=== PATIENT | female | born 1970 | race American Indian/Alaskan Native ===

== ENCOUNTER 2017-01-01 02:49 | Inpatient (IN) | payer BC, OTHER ==
[2017-01-01 03:26] LABS: Eosinophils % (Auto) 1.1 % (0.0-4.3); Hematocrit 36.9 % (30.3-42.9); Hemoglobin 11.9 gm/dl (10.1-14.3); Mean Corpuscular HGB Conc 32 % (30-34); Mean Corpuscular Hemoglobin 27 pg (28-32); Mean Corpuscular Volume 84 fl (79-97); Platelet Count 386 K/mm3 (140-440); Red Blood Count 4.37 M/mm3 (3.65-5.03); White Blood Count 12.2 K/mm3 (4.5-11.0)
[2017-01-01 03:44] LABS: BUN/Creatinine Ratio 7.5; Calcium 8.9 mg/dL (8.4-10.2); Chloride 100.7 mmol/L (98-107)
[2017-01-01] MEDS ORDERED: DUONEB 0.5 MG-3 MG/3 ML SOLN IH ONE ×2 (04:38→12:08)
[2017-01-01] MEDS ORDERED: LASIX PO ONE (04:38)
[2017-01-01] MEDS ORDERED: BABY ASPIRIN PO ONE (05:23)
--- NOTE | 2017-01-01 05:23 | Emergency Department Report ---
HPI - General Chief Complaint: Dyspnea/Respdistress Time Seen by Provider: 01/01/17 03:21 - HPI HPI: The patient is a 46-year-old female with a history of CHF and presents for evaluation of dyspnea. The patient reports 1 day of constant dyspnea, severe, exacerbated with lying flat or exertion, improved with sitting up and rest. The patient denies fever, trauma to the chest, CRP, hemoptysis, unilateral leg swelling, oral contraceptive use, recent immobilization or surgery, history of DVT or PE, recent cancer. ED Past Medical Hx - Past Medical History Previous Medical History?: Yes Hx Hypertension: Yes Hx Congestive Heart Failure: Yes Additional medical history: MVP - Surgical History Past Surgical History?: Yes Hx Pacemaker: Yes Additional Surgical History: mechanical heart valve - Social History Smoking Status: Never Smoker Substance Use Type: None - Medications Home Medications: Home Medications Medication Instructions Recorded Confirmed Last Taken Type Carvedilol [Coreg] 6.25 mg PO BID 10/27/13 01/01/17 05/14/16 History Losartan [Cozaar] 25 mg PO QDAY 05/14/16 01/01/17 05/14/16 History Spironolactone [Aldactone] 25 mg PO QDAY 05/14/16 01/01/17 Unknown History Warfarin [Coumadin] 10 mg PO 5XW 05/14/16 01/01/17 05/13/16 History Aspirin EC [Aspirin Enteric Coated 81 mg PO QDAY #30 tablet 08/16/16 01/01/17 Unknown Rx TAB] Furosemide [Lasix TAB] 40 mg PO QDAY #30 tablet 08/16/16 01/01/17 Unknown Rx ED Review of Systems ROS: Stated complaint: SOB Other details as noted in HPI Constitutional: denies: fever ENT: denies: throat or neck pain Respiratory: reports cough, shortness of breath Cardiovascular: denies: chest pain Endocrine: denies unexplained weight loss or gain Gastrointestinal: denies: abdominal pain, nausea Genitourinary: denies: dysuria Musculoskeletal: denies: leg swelling Skin: denies: rash Neurological: denies: headache Hematological/Lymphatic: denies: easy bleeding or easy bruising Psych: denies sadness or hopelessness Physical Exam - Physical Exam Vital Signs: Vital Signs 01/01/17 01/01/17 01/01/17 03:52 04:49 04:52 Pulse Rate [ 102 H 102 H Anterior Bilateral Throughout] Respiratory 22 22 Rate [Anterior Bilateral Throughout] Blood Pressure 158/93 O2 Sat by Pulse 99 Oximetry Physical Exam: General: well-nourished, well-developed, no acute distress Head: Normocephalic, atraumatic Eyes: normal sclera ENT: Mucous membranes are pink and moist Neck: trachea midline, neck supple, No neck stiffness, no cervical adenopathy Respiratory: Diminished breath sounds and crackles present at bibasilar lung rasheed, mild costal retractions present Cardio: S1 and S2 present, no murmurs, rubs, gallops, capillary refill is brisk Abdomen: Normoactive bowel sounds, soft abdomen, no rigidity, no guarding or rebound tenderness Musc: 1+ pitting edema of bilateral legs present Skin: No rash Neuro: no facial drooping, normal speech Psych: Normal affect ED Course Vital Signs 01/01/17 01/01/17 01/01/17 03:52 04:49 04:52 Pulse Rate [ 102 H 102 H Anterior Bilateral Throughout] Respiratory 22 22 Rate [Anterior Bilateral Throughout] Blood Pressure 158/93 O2 Sat by Pulse 99 Oximetry ED Medical Decision Making - Lab Data Result diagrams: 01/04/17 06:35 01/04/17 06:35 - Medical Decision Making The patient was seen and examined by myself. The patient is placed on a quality assurance monitor final and continuous pulse ox. On initial evaluation, the patient was found to be in no distress. Evaluation orders were placed. The patient is given IV hydralazine for her elevated blood pressure. X-ray of the chest exhibits pulmonary vessel congestion and bilateral pleural effusions. Lab results revealed elevated BNP of greater than 8000. The patient given IV Lasix for treatment of acute on chronic CHF. The on-call hospitalist service was contacted. They agreed to admit the patient for further treatment and close monitoring. The ED admit order was placed. The patient was admitted in guarded condition. Critical care attestation.: If time is entered above; I have spent that time in minutes in the direct care of this critically ill patient, excluding procedure time. ED Disposition Clinical Impression: Systolic CHF, acute on chronic, Difficulty breathing Disposition: OP ADMITTED IP TO THIS HOSP Is pt being admited?: Yes Does the pt Need Aspirin: Yes Condition: Fair Time of Disposition: 05:19
[2017-01-01] MEDS ORDERED: MORPHINE IV ONE (05:39)
[2017-01-01] MEDS ORDERED: APRESOLINE IV ONE (05:40)
[2017-01-01] MEDS ORDERED: PERCOCET 5/325 ONE (05:52)
[2017-01-01] MEDS ORDERED: PERCOCET 5/325 PO ONE (06:01)
[2017-01-01] MEDS ORDERED: DULCOLAX PR PRN (06:05)
[2017-01-01] MEDS ORDERED: TYLENOL PO PRN (06:05)
[2017-01-01] MEDS ORDERED: MILK OF MAGNESIA PO PRN (06:05)
--- NOTE | 2017-01-01 06:14 | History and Physical Report ---
History of Present Illness Date of examination: 01/01/17 History of present illness: 46-year-old woman with a history of CHF, hypertension , chronic back pain comes emergency room with complaints of shortness of breath, PND, orthopnea. She ran out of her Lasix 1 week. Also complaining of chest pain described as tightness across her chest, constant, intensity 5/10, no radiation, she cannot identify exacerbating or relieving factors Patient denies cough, abdominal pain, hematochezia, dysuria, frequency, focal weakness, dysarthria, fever chills, polydipsia polyuria, hot or cold intolerance , easy bruisability, or rash or bleeding from mucosal membrane, rhinorrhea, epistaxis, earache, tinnitus, blurry vision, eye discharge, anxiety, depression. Other review of systems negative PAST SURGICAL HISTORY: AICD, valve replacement SOCIAL HISTORY: Denies alcohol, tobacco, drugs FAMILY HISTORY: Hypertension Medications and Allergies Allergies Allergy/AdvReac Type Severity Reaction Status Date / Time Wonzbya-Wsx-Gms Reductase Allergy Unknown Verified 05/14/16 12:53 Inhibitor Home Medications Medication Instructions Recorded Confirmed Last Taken Type Carvedilol [Coreg] 6.25 mg PO BID 10/27/13 08/13/16 05/14/16 History Warfarin [Coumadin] 7.5 mg PO 2XW 09/18/15 08/13/16 09/15/15 History Losartan [Cozaar] 25 mg PO QDAY 05/14/16 08/13/16 05/14/16 History Spironolactone [Aldactone] 25 mg PO QDAY 05/14/16 08/13/16 Unknown History Warfarin [Coumadin] 10 mg PO 5XW 05/14/16 08/13/16 05/13/16 History Aspirin EC [Aspirin Enteric Coated 81 mg PO QDAY #30 tablet 08/16/16 Unknown Rx TAB] Enoxaparin [Lovenox] 80 mg SQ Q12HR #10 syringe 08/16/16 Unknown Rx Famotidine [Pepcid] 20 mg PO BID #60 tablet 08/16/16 Unknown Rx Furosemide [Lasix TAB] 40 mg PO QDAY #30 tablet 08/16/16 Unknown Rx Exam - Physical Exam Narrative exam: Gen. appearance: Patient lying in bed, no apparent distress HEENT: Normocephalic, atraumatic, pupils equally round and reactive to light, extraocular movement intact, and no sclericterus,. No JVD or thyromegaly or nodule,neck supple, no carotid bruit ,mucous membranes moist, no exudate or erythema Heart: S1, S2, regular rate and rhythm Lungs: Crackles, decreased breath, but the right auscultation bilaterally, breathing comfortable Abdomen: Positive bowel sounds, nontender, nondistended, no organomegaly Extremity: No edema, cyanosis, clubbing Skin: No rash, nodules, warm, dry Neuro: Oriented 3, cranial nerves II-12 intact, speech is fluent, motor and sensory intact - Constitutional Vitals: Temp Pulse Resp BP Pulse Ox 102 H 22 158/93 99 01/01/17 04:52 01/01/17 04:52 01/01/17 03:52 01/01/17 03:52 Results - Labs CBC & Chem 7: 01/01/17 03:13 01/01/17 03:13 Labs: Abnormal lab results 01/01/17 01/01/17 Range/Units 03:13 03:13 WBC 12.2 H (4.5-11.0) K/mm3 MCH 27 L (28-32) pg RDW 16.0 H (13.2-15.2) % Lymph % (Auto) 10.9 L (13.4-35.0) % Seg Neutrophils % 82.3 H (40.0-70.0) % Seg Neutrophils # 10.0 H (1.8-7.7) K/mm3 Glucose 106 H (65-100) mg/dL NT-Pro-B Natriuret Pep 8352 H (0-450) pg/mL - Imaging and Cardiology EKG: image reviewed Chest x-ray: image reviewed Assessment and Plan CHF acute on chronic systolic dysfunction Hypertension Chronic back pain Admits medicine Diuresed with IV Lasix Monitor I's and O's, daily weights Start Beta shelbi, EUSEBIO inhibitor, aspirin Check cardiac enzymes, echo Check INR, patient on coumadin
--- NOTE | 2017-01-01 06:57 | Admit Criteria Form ---
Admission Criteria Documentation: HEART FAILURE: COMMON COMPLICATIONS Clinical Indications for Inpatient Care (Place 'X' for any and all applicable criteria): Ongoing inpatient care may be indicated for heart failure with ANY ONE of the following (1)(2)(3)(4)(5): [ ]I. Ongoing need for care for primary condition requiring frequent therapy adjustments because of changes in cardiac function (eg, drug dosage changes for drugs that are renally metabolized) [ ]II. New-onset heart failure [ ]III. Heart failure with decreased urine output not responsive to attempts to optimize volume status [ ]IV. Acute cardiac ischemia causing or associated with failure [X]V. Complications of heart failure, including ANY ONE of the following: [ ]a) Pericardial effusion [ ]b) Symptomatic pleural effusion [ ]c) O2 saturation <90% or PO2 < 60 mm Hg (8.0 kPa) on room air or require baseline supplemental O2 [ ]d) Tachypnea [X]e) Dyspnea [ ]f) Syncope [ ]g) Change in mental status [ ]h) Acute renal insufficiency that is severe (reduction of more than 50% in estimated glomerular filtration rate from baseline) or progressive reduction of more than 25% in estimated glomerular filtration rate from baseline, with creatinine continuing to rise) [ ]i) Hemodynamic instability [ ]j) Anasarca [ ]k) Clinically significant metabolic abnormalities due to heart failure (eg, new-onset metabolic acidosis) Extended stay beyond goal length of stay for primary condition may be needed until ALL of the following are present(1)(3): [ ]a) Stable and effective diuretic regimen established (or patient on stable dialysis regimen if in chronic renal failure) [ ]b) Breathing comfortably at rest [ ]c) Saturation of arterial oxygen greater than 90% or at acceptable baseline [ ]d) Pulmonary edema absent or improved [ ]e) Hemodynamic stability [ ]f) Volume status acceptable on oral medication [ ]g) Peripheral or sacral edema absent or improved [ ]h) Renal function stable and manageable at a lower level of care [ ]i) Complications (eg, pleural effusion) resolved or manageable at a lower level of care [ ]j) Patient or caregiver has received written discharge instructions or educational material addressing activity level, diet, discharge medications, follow-up appointment, weight monitoring, and what to do if symptoms worsen The original [email or web address] content created by [employer] has been revised. The portions of the content which have been revised are identified through the use of italic text or in bold, and [facility] has neither reviewed nor approved the modified material.All other unmodified content is copyright [facility]. Please see references footnoted in the original [facility] edition 2016 Admission Criteria Met: Yes
[2017-01-01 07:12] LABS: INR 1.22 (0.87-1.13)
[2017-01-01 07:13] LABS: Partial Thromboplastin Time 30.2 Sec. (24.2-36.6)
[2017-01-01] MEDS: LASIX IV SCH ×2 (07:15→17:32)
[2017-01-01 07:18] LABS: Creatine Kinase MB 3.3 ng/mL (0.0-4.0)
[2017-01-01 07:19] LABS: Creatine Kinase 249 units/L (30-135)
--- NOTE | 2017-01-01 07:52 | XRay Report ---
ROUTINE CHEST, TWO VIEWS: HISTORY: Shortness of breath. Compared to 08/13/16. Previous cardiac surgery changes and pacemaker device are unchanged. Mild cardiomegaly, mild pulmonary venous congestion and trace bilateral pleural effusions are identified. No consolidation or pneumothorax. IMPRESSION: Mild volume overload.
--- NOTE | 2017-01-01 09:21 | Consultation ---
<SINCERE OLSEN - Last Filed: 01/01/17 10:52> History of Present Illness Consult date: 01/01/17 Requesting physician: UMA SERRATO Consult reason: chest pain, congestive heart failure History of present illness: The patient is a 46 year old female who is followed by Dr. Ram in the office with a history significant for chronic systolic heart failure, non- ischemic cardiomyopathy s/p subcutaneous AICD, mechanical mitral valve on coumadin, AI, HTN, HLP, cardiomyopathy, and syncope. She presented with c/o progressively worsening SOB, orthopnea, and chest pain x 1 week BAG [employer]ASH[employer]. She describes her chest pain as a nonexertional, nonradiating, constant circumferential chest tightness. She denies palpitations, n/v, fever, chills, diaphoresis, dizziness, or syncope. She ran out of her Lasix on and thus has not taken any since then. Rachid negative for AMI x 1 set. INR 1.22 on admission. Stress test 08/16/2016 was negative for ischemia, EF 43%. Echo done showed mild LVH, EF 30-35%, moderate AR. Cath in 09/2012 revealed normal coronaries. Past History Past Medical History: heart failure, hypertension, hyperlipidemia, other ( mechanical MV; NICMP) Past Surgical History: Other (AICD; mechanical MV) Medications and Allergies Allergies Allergy/AdvReac Type Severity Reaction Status Date / Time Nceujha-Djb-Eog Reductase Allergy Unknown Verified 05/14/16 12:53 Inhibitor Home Medications Medication Instructions Recorded Confirmed Last Taken Type Carvedilol [Coreg] 6.25 mg PO BID 10/27/13 01/01/17 05/14/16 History Losartan [Cozaar] 25 mg PO QDAY 05/14/16 01/01/17 05/14/16 History Spironolactone [Aldactone] 25 mg PO QDAY 05/14/16 01/01/17 Unknown History Warfarin [Coumadin] 10 mg PO 5XW 05/14/16 01/01/17 05/13/16 History Aspirin EC [Aspirin Enteric Coated 81 mg PO QDAY #30 tablet 08/16/16 01/01/17 Unknown Rx TAB] Furosemide [Lasix TAB] 40 mg PO QDAY #30 tablet 08/16/16 01/01/17 Unknown Rx Active Meds: Active Medications Acetaminophen (Tylenol) 650 mg PO Q4H PRN PRN Reason: Pain MILD(1-3)/Fever >100.5/VELOZ Aspirin (Halfprin Ec) 81 mg PO QDAY [facility] Bisacodyl (Dulcolax) 10 mg [place] QDAY PRN PRN Reason: Constipation unrelieved by MOM Carvedilol (Coreg) 6.25 mg PO BID [facility] Enoxaparin Sodium (Lovenox) 40 mg SUB-Q QDAY [facility] Famotidine (Pepcid) 20 mg PO BID [facility] Furosemide (Lasix) 40 mg IV BID@0600,1800 [facility] Last Admin: 01/01/17 07:15 Dose: 40 mg Losartan Potassium (Cozaar) 25 mg PO QDAY [facility] Magnesium Hydroxide (Milk Of Magnesia) 30 ml PO Q4H PRN PRN Reason: Constipation Ondansetron HCl (Zofran) 4 mg IV Q8H PRN PRN Reason: N/V unrelieved by Reglan Oxycodone/Acetaminophen (Percocet 5/325) 1 tab PO Q6H PRN PRN Reason: Pain, Moderate (4-6) Review of Systems Constitutional: no weight loss, no weight gain, no fever, no chills, no sweats Ears, nose, mouth and throat: no ear pain, no nose pain, no nasal congestion, no sinus pressure, no sinus pain, no epistaxis, no bleeding gums, no dental pain , no mouth pain, no dysphagia, no hoarseness, no sore throat Cardiovascular: chest pain, orthopnea, shortness of breath, dyspnea on exertion , no palpitations, no rapid/irregular heart beat, no edema, no syncope, no lightheadedness, no leg edema Respiratory: shortness of breath, dyspnea on exertion, no cough, no congestion, no wheezing, no pain Gastrointestinal: no abdominal pain, no nausea, no vomiting, no diarrhea, no constipation, no change in bowel habits Genitourinary Female: no pelvic pain, no flank pain, no dysuria, no urinary frequency, no urgency Musculoskeletal: no neck stiffness, no neck pain, no shooting arm pain, no arm numbness/tingling, no low back pain, no shooting leg pain, no leg numbness/ tingling, no redness of joints Integumentary: no rash, no pruritis, no redness, no sores, no wounds Neurological: no head injury, no paralysis, no weakness, no parathesias, no numbness, no tingling, no seizures, no syncope Psychiatric: no anxiety Endocrine: no cold intolerance, no heat intolerance Hematologic/Lymphatic: no easy bruising, no easy bleeding, no lymphadenopathy Allergic/Immunologic: no urticaria, no wheezing, no persistent infections Physical Examination Vital Signs BP Pulse Ox 158/93 99 01/01/17 03:52 01/01/17 03:52 General appearance: no acute distress HEENT: Positive: PERRL, Normocephaly, Mucus Membranes Moist Neck: Positive: neck supple, trachea midline Cardiac: Positive: Reg Rate and Rhythm, S1/S2 Lungs: Positive: Normal Exam, clear to auscultation, Normal Breath Sounds Neuro: Positive: Grossly Intact, Cranial Nerve 2-12 Intact Abdomen: Positive: Unremarkable, Soft, Active Bowel Sounds. Negative: Tender Skin: Positive: Clear. Negative: Rash, Wound Musculoskeletal: No Fluid Collection, No Pain, Normal Range of Motion Extremities: Present: normal, upper extr. pulses, lower extr. pulses. Absent: edema Results 01/01/17 03:13 01/01/17 03:13 Cardiac Enzymes 01/01/17 Range/Units 06:27 CK-MB (CK-2) 3.3 (0.0-4.0) ng/mL Coagulation 01/01/17 Range/Units 06:27 PT 15.3 H (12.2-14.9) Sec. INR 1.22 H (0.87-1.13) APTT 30.2 (24.2-36.6) Sec. - Imaging and Cardiology Echo: pending, report reviewed Cardiac cath: report reviewed EKG: report reviewed, image reviewed EKG interpretations - Telemetry EKG Rhythm: Sinus Rhythm - EKG Sinus rhythms and dysrhythmias: sinus rhythm Assessment and Plan Assessment: Acute on chronic systolic heart failure Chest pain, atypical - Rachid negative for AMI x 1 set; ECG with NAF. Non-ischemic CMP Subcutaneous AICD in situ H/O mechanical MV replacement - INR goal 2.5 - 3.5 Subtherapeutic INR H/O NSVT HTN HLP H/o CMP Plan: Increase Coreg. Cont diuresis with IV lasix, 40mg BID. Cont losartan. Resume home aldactone, 25mg daily. Await echo. Obtain second set of Rachid. Initiate heparin gtt with initial bolus and continue PO coumadin. D/c heparin gtt once tx INR of 2.5-3.5 is achieved. Assessment and plan reviewed with pt at bedside. The patient has been seen in conjunction with Dr. Allen who agrees with the assessment and plan of care. <CRISTOBAL ALLEN R - Last Filed: 01/01/17 11:12> Medications and Allergies Active Meds: Active Medications Acetaminophen (Tylenol) 650 mg PO Q4H PRN PRN Reason: Pain MILD(1-3)/Fever >100.5/VELOZ Aspirin (Halfprin Ec) 81 mg PO QDAY [facility] Bisacodyl (Dulcolax) 10 mg [place] QDAY PRN PRN Reason: Constipation unrelieved by MOM Carvedilol (Coreg) 12.5 mg PO BID [facility] Enoxaparin Sodium (Lovenox) 40 mg SUB-Q QDAY [facility] Famotidine (Pepcid) 20 mg PO BID [facility] Furosemide (Lasix) 40 mg IV BID@0600,1800 [facility] Last Admin: 01/01/17 07:15 Dose: 40 mg Heparin Sodium (Porcine) (Heparin 10,000 Units/10 Ml) 5,700 unit 70 unit/kg ( 5700 unit) IV ONCE ONE Stop: 01/01/17 10:40 Heparin Sodium/Sodium Chloride (Heparin/ 0.45% Nacl-25,000 Unit/500 Ml) 500 mls @ 24.494 mls/hr IV TITR [facility]; 15 UNITS/KG/HR PRN Reason: Protocol Losartan Potassium (Cozaar) 25 mg PO QDAY [facility] Magnesium Hydroxide (Milk Of Magnesia) 30 ml PO Q4H PRN PRN Reason: Constipation Ondansetron HCl (Zofran) 4 mg IV Q8H PRN PRN Reason: N/V unrelieved by Reglan Oxycodone/Acetaminophen (Percocet 5/325) 1 tab PO Q6H PRN PRN Reason: Pain, Moderate (4-6) Spironolactone (Aldactone) 25 mg PO QDAY [facility] Warfarin Sodium (Coumadin) 5 mg PO DAILY@1700 [facility] PRN Reason: Protocol Warfarin Sodium (Coumadin Pharmacy To Dose) 1 each PO PKCONSULT [facility] PRN Reason: Protocol Physical Examination Vital Signs BP Pulse Ox 158/93 99 01/01/17 03:52 01/01/17 03:52 Results 01/01/17 03:13 01/01/17 03:13 Cardiac Enzymes 01/01/17 Range/Units 06:27 CK-MB (CK-2) 3.3 (0.0-4.0) ng/mL Coagulation 01/01/17 Range/Units 06:27 PT 15.3 H (12.2-14.9) Sec. INR 1.22 H (0.87-1.13) APTT 30.2 (24.2-36.6) Sec. Assessment and Plan Her decompensated heart failure,most likely secondary to her non compliance with medication.Ran out of few meds last week,
[2017-01-01] MEDS ORDERED: LOPRESSOR PO SCH (10:00)
[2017-01-01] MEDS ORDERED: ZESTRIL PO SCH (10:00)
[2017-01-01] MEDS ORDERED: LOVENOX SUB-Q SCH (10:00)
[2017-01-01] MEDS ORDERED: ASPIRIN PO SCH (10:00)
[2017-01-01] MEDS ORDERED: COREG PO SCH ×2 (10:00)
[2017-01-01] MEDS: HALFPRIN EC PO SCH (11:20)
[2017-01-01] MEDS: COZAAR PO SCH (11:21)
[2017-01-01] MEDS: PEPCID PO SCH ×2 (11:21→21:42)
[2017-01-01] MEDS: COREG PO SCH ×2 (11:28→21:42)
[2017-01-01 11:45] LABS: Hemoglobin 12.8 gm/dl (10.1-14.3)
[2017-01-01 11:55] LABS: INR 1.32 (0.87-1.13); Partial Thromboplastin Time 31.4 Sec. (24.2-36.6)
[2017-01-01] MEDS: HEPARIN/ 0.45% NACL-25,000 UNIT/500 ML 25,000 UNIT/500 ML BAG IV SCH (12:13)
[2017-01-01] MEDS: ALDACTONE PO SCH (12:14)
[2017-01-01] MEDS ORDERED: PROVENTIL IH PRN (12:21)
[2017-01-01] MEDS ORDERED: HEPARIN 10,000 UNITS/10 ML IV ONE (13:00)
[2017-01-01 15:37] LABS: Creatine Kinase MB 3.6 ng/mL (0.0-4.0)
[2017-01-01 15:39] LABS: Creatine Kinase 316 units/L (30-135)
[2017-01-01] MEDS ORDERED: COUMADIN PO SCH (17:00)
[2017-01-01] MEDS: COUMADIN PO SCH (17:32)
[2017-01-01] MEDS: PERCOCET 5/325 PO PRN (18:37)
[2017-01-01] MEDS: ZOFRAN IV PRN (21:42)
[2017-01-02] MEDS: PERCOCET 5/325 PO PRN ×2 (01:16→17:53)
[2017-01-02 06:48] LABS: Basophils % (Auto) 1.3 % (0.0-1.8); Eosinophils % (Auto) 5.9 % (0.0-4.3); Hematocrit 39.7 % (30.3-42.9); Hemoglobin 13.1 gm/dl (10.1-14.3); Mean Corpuscular HGB Conc 33 % (30-34); Mean Corpuscular Hemoglobin 28 pg (28-32); Mean Corpuscular Volume 84 fl (79-97); Platelet Count 371 K/mm3 (140-440); Red Blood Count 4.71 M/mm3 (3.65-5.03); Red Cell Distribution Width 16.7 % (13.2-15.2); White Blood Count 8.6 K/mm3 (4.5-11.0)
[2017-01-02 06:53] LABS: INR 1.79 (0.87-1.13)
[2017-01-02 07:14] LABS: Anion Gap 19 mmol/L; Blood Urea Nitrogen 13 mg/dL (7-17); Calcium 9.6 mg/dL (8.4-10.2); Carbon Dioxide 25 mmol/L (22-30); Chloride 96.8 mmol/L (98-107); Glucose 101 mg/dL (65-100); Potassium 3.7 mmol/L (3.6-5.0); Sodium 137 mmol/L (137-145)
--- NOTE | 2017-01-02 08:39 | Progress Note ---
Assessment and Plan - Patient Problems (1) Systolic CHF, acute on chronic Current Visit: Yes Status: Acute Plan to address problem: Continue current management. Continue Lasix and EUSEBIO inhibitor. Cardiology evaluation appreciated (2) HTN (hypertension) Current Visit: No Status: Chronic Qualifiers: Hypertension type: H Plan to address problem: Patient blood pressure is low today will hold antihypertensives today and give small amount of IV fluids History Interval history: Patient lying in bed this morning. Patient state that she has some shortness of breath Hospitalist Physical - Constitutional Vitals: Temp Pulse Resp BP Pulse Ox 97.8 F 67 20 94/59 97 01/02/17 08:23 01/02/17 08:23 01/02/17 08:23 01/02/17 08:23 01/02/17 08:23 General appearance: Present: no acute distress - EENT Eyes: Present: PERRL, EOM intact ENT: hearing intact, clear oral mucosa - Neck Neck: Present: supple, normal ROM - Respiratory Respiratory effort: normal Respiratory: bilateral: rales - Cardiovascular Rhythm: regular Heart Sounds: Present: S1 & S2 - Extremities Extremities: no ischemia Extremity abnormal: edema - Abdominal General gastrointestinal: soft, non-tender, non-distended, normal bowel sounds - Psychiatric Psychiatric: appropriate mood/affect, intact judgment & insight - Neurologic Neurologic: CNII-XII intact, moves all extremities Results - Labs CBC & Chem 7: 01/02/17 05:38 01/02/17 05:38 Labs: Laboratory Last Values WBC 8.6 K/mm3 (4.5-11.0) 01/02/17 05:38 RBC 4.71 M/mm3 (3.65-5.03) 01/02/17 05:38 Hgb 13.1 gm/dl (10.1-14.3) 01/02/17 05:38 Hct 39.7 % (30.3-42.9) 01/02/17 05:38 MCV 84 fl (79-97) 01/02/17 05:38 MCH 28 pg (28-32) 01/02/17 05:38 MCHC 33 % (30-34) 01/02/17 05:38 RDW 16.7 % (13.2-15.2) H 01/02/17 05:38 Plt Count 371 K/mm3 (140-440) 01/02/17 05:38 Lymph % (Auto) 25.7 % (13.4-35.0) 01/02/17 05:38 [place] % (Auto) 6.3 % (0.0-7.3) 01/02/17 05:38 Eos % (Auto) 5.9 % (0.0-4.3) H 01/02/17 05:38 Baso % (Auto) 1.3 % (0.0-1.8) 01/02/17 05:38 Lymph # 2.2 K/mm3 (1.2-5.4) 01/02/17 05:38 [place]y # 0.5 K/mm3 (0.0-0.8) 01/02/17 05:38 Eos # 0.5 K/mm3 (0.0-0.4) H 01/02/17 05:38 Baso # 0.1 K/mm3 (0.0-0.1) 01/02/17 05:38 Seg Neutrophils % 60.8 % (40.0-70.0) 01/02/17 05:38 Seg Neutrophils # 5.2 K/mm3 (1.8-7.7) 01/02/17 05:38 PT 20.8 Sec. (12.2-14.9) H 01/02/17 05:38 INR 1.79 (0.87-1.13) H 01/02/17 05:38 APTT 31.4 Sec. (24.2-36.6) 01/01/17 11:08 Heparin Anti-Xa Level 1.25 U.I./ml (0.3-0.7) H 01/02/17 05:38 Sodium 137 mmol/L (137-145) 01/02/17 05:38 Potassium 3.7 mmol/L (3.6-5.0) 01/02/17 05:38 Chloride 96.8 mmol/L (98-107) L 01/02/17 05:38 Carbon Dioxide 25 mmol/L (22-30) 01/02/17 05:38 Anion Gap 19 mmol/L 01/02/17 05:38 BUN 13 mg/dL (7-17) 01/02/17 05:38 Creatinine 1.0 mg/dL (0.7-1.2) 01/02/17 05:38 Estimated GFR > 60 ml/min 01/02/17 05:38 BUN/Creatinine Ratio 13.00 % 01/02/17 05:38 Glucose 101 mg/dL (65-100) H 01/02/17 05:38 Calcium 9.6 mg/dL (8.4-10.2) 01/02/17 05:38 Total Creatine Kinase 309 units/L (30-135) H 01/01/17 14:59 CK-MB (CK-2) 3.6 ng/mL (0.0-4.0) 01/01/17 14:59 CK-MB (CK-2) Rel Index 1.1 (0-4) 01/01/17 14:59 Troponin T < 0.010 ng/mL (0.00-0.029) 01/01/17 14:59 NT-Pro-B Natriuret Pep 8352 pg/mL (0-450) H 01/01/17 03:13
[2017-01-02] MEDS ORDERED: NACL 0.9% 250ML 250 ML IV NR (09:53)
[2017-01-02] MEDS: COZAAR PO SCH (10:04)
[2017-01-02] MEDS: COREG PO SCH ×2 (10:05→22:14)
[2017-01-02] MEDS: HALFPRIN EC PO SCH (10:21)
[2017-01-02] MEDS: PEPCID PO SCH ×2 (10:25→22:14)
--- NOTE | 2017-01-02 11:40 | Progress Note ---
Assessment and Plan Assessment: Acute on chronic systolic heart failure Chest pain, atypical - Rachid negative for AMI x 2 sets; ECG with NAF. Non-ischemic CMP Subcutaneous AICD in situ H/O mechanical MV replacement - INR goal 2.5 - 3.5 Subtherapeutic INR H/O NSVT H/O HTN - currently with hypotension. HLP H/o CMP Plan: Echo reviewed - LV mild to moderately dilated, EF 30 - 35%, abnormal diastolic function, LA mildly dilated, moderate AR, mechanical prosthetic MV present. Convert IV lasix to PO, 40mg daily. Cont losartan and aldactone. Decrease coreg to 6.25mg PO BID. Cont heparin gtt PO coumadin. D/c heparin gtt once tx INR of 2.5-3.5 is achieved. Assessment and plan reviewed with pt at bedside. The patient has been seen in conjunction with Dr. Carranza who agrees with the assessment and plan of care. Subjective Date of service: 01/02/17 Principal diagnosis: HF Interval history: Pt resting in bed, SOB and orthopnea resolved. BPs low this AM. Objective Last Vital Signs Temp 97.8 F 01/02/17 08:23 Pulse 78 01/02/17 10:05 Resp 20 01/02/17 10:01 BP 89/49 01/02/17 10:05 Pulse Ox 97 01/02/17 08:23 - Physical Examination General: Appears Well, No Apparent Distress HEENT: Positive: PERRL, Normocephaly, Mucus Membranes Moist Neck: Positive: neck supple, trachea midline Cardiac: Positive: Reg Rate and Rhythm, S1/S2 Lungs: Positive: clear to auscultation, Decreased Breath Sounds Neuro: Positive: Grossly Intact, Cranial Nerve 2-12 Intact Abdomen: Positive: Unremarkable, Soft, Active Bowel Sounds. Negative: Tender Skin: Positive: Clear. Negative: Rash, Wound Musculoskeletal: No Fluid Collection, No Pain, Normal Range of Motion Extremities: Present: normal, upper extr. pulses, lower extr. pulses. Absent: edema - Labs and Meds Cardiac Enzymes 01/01/17 Range/Units 14:59 CK-MB (CK-2) 3.6 (0.0-4.0) ng/mL Coagulation 01/01/17 01/02/17 Range/Units 11:08 05:38 PT 16.3 H 20.8 H (12.2-14.9) Sec. INR 1.32 H 1.79 H (0.87-1.13) APTT 31.4 (24.2-36.6) Sec. CBC 01/01/17 01/02/17 Range/Units 11:08 05:38 WBC 8.6 (4.5-11.0) K/mm3 RBC 4.71 (3.65-5.03) M/mm3 Hgb 12.8 13.1 (10.1-14.3) gm/dl Hct 39.0 39.7 (30.3-42.9) % Plt Count 407 371 (140-440) K/mm3 Lymph # 2.2 (1.2-5.4) K/mm3 [place] # 0.5 (0.0-0.8) K/mm3 Eos # 0.5 H (0.0-0.4) K/mm3 Baso # 0.1 (0.0-0.1) K/mm3 Comprehensive Metabolic Panel 01/02/17 Range/Units 05:38 Sodium 137 (137-145) mmol/L Potassium 3.7 (3.6-5.0) mmol/L Chloride 96.8 L (98-107) mmol/L Carbon Dioxide 25 (22-30) mmol/L BUN 13 (7-17) mg/dL Creatinine 1.0 (0.7-1.2) mg/dL Glucose 101 H (65-100) mg/dL Calcium 9.6 (8.4-10.2) mg/dL - Imaging and Cardiology EKG: report reviewed, image reviewed Echo: report reviewed Cardiac cath: report reviewed - Telemetry EKG Rhythm: Sinus Rhythm - EKG Sinus rhythms and dysrhythmias: sinus rhythm
[2017-01-02] MEDS: ALDACTONE PO SCH (15:12)
[2017-01-02] MEDS: COUMADIN PO SCH (17:50)
[2017-01-02] MEDS: HEPARIN/ 0.45% NACL-25,000 UNIT/500 ML 25,000 UNIT/500 ML BAG IV SCH (18:51)
[2017-01-02] MEDS: LASIX IV SCH (19:15)
[2017-01-03] MEDS: PERCOCET 5/325 PO PRN ×3 (00:05→20:00)
[2017-01-03 05:37] LABS: Basophils % (Auto) 1.3 % (0.0-1.8); Eosinophils % (Auto) 6.5 % (0.0-4.3); Hematocrit 37.9 % (30.3-42.9); Hemoglobin 12.5 gm/dl (10.1-14.3); Mean Corpuscular HGB Conc 33 % (30-34); Mean Corpuscular Hemoglobin 28 pg (28-32); Mean Corpuscular Volume 85 fl (79-97); Platelet Count 335 K/mm3 (140-440); Red Blood Count 4.46 M/mm3 (3.65-5.03); Red Cell Distribution Width 16.1 % (13.2-15.2); White Blood Count 6.6 K/mm3 (4.5-11.0)
[2017-01-03 05:45] LABS: INR 1.87 (0.87-1.13)
[2017-01-03 06:00] LABS: Albumin 3.9 g/dL (3.9-5); Albumin/Globulin Ratio 1.2 %; BUN/Creatinine Ratio 13.07; Bilirubin,Total 0.5 mg/dL (0.1-1.2); Calcium 9.1 mg/dL (8.4-10.2); Chloride 98.6 mmol/L (98-107); Potassium 3.9 mmol/L (3.6-5.0); Total Protein 7.1 g/dL (6.3-8.2)
--- NOTE | 2017-01-03 08:59 | Progress Note ---
Assessment and Plan - Patient Problems (1) Systolic CHF, acute on chronic Current Visit: Yes Status: Acute Plan to address problem: Continue current management. Continue Lasix and EUSEBIO inhibitor. Cardiology evaluation appreciated (2) HTN (hypertension) Current Visit: No Status: Chronic Qualifiers: Hypertension type: H Plan to address problem: Patient blood pressure is low today will hold antihypertensives today and give small amount of IV fluids (3) Mitral valve replaced Current Visit: No Status: Chronic Plan to address problem: Continue Coumadin and heparin drip. INR goal is 2.5-3.5 History Interval history: Patient lying in bed this morning. Patient stated that she feels fine Hospitalist Physical - Constitutional Vitals: Temp Pulse Resp BP Pulse Ox 98.1 F 82 18 128/74 100 01/03/17 04:00 01/03/17 08:32 01/03/17 08:32 01/03/17 08:32 01/03/17 08:32 General appearance: Present: no acute distress - EENT Eyes: Present: PERRL, EOM intact ENT: hearing intact, clear oral mucosa - Neck Neck: Present: supple, normal ROM - Respiratory Respiratory effort: normal Respiratory: bilateral: rales - Cardiovascular Rhythm: regular Heart Sounds: Present: S1 & S2 - Extremities Extremities: no ischemia Extremity abnormal: edema - Abdominal General gastrointestinal: soft, non-tender, non-distended, normal bowel sounds - Psychiatric Psychiatric: appropriate mood/affect, intact judgment & insight - Neurologic Neurologic: CNII-XII intact, moves all extremities Results - Labs CBC & Chem 7: 01/03/17 03:56 01/03/17 03:56 Labs: Laboratory Last Values WBC 6.6 K/mm3 (4.5-11.0) 01/03/17 03:56 RBC 4.46 M/mm3 (3.65-5.03) 01/03/17 03:56 Hgb 12.5 gm/dl (10.1-14.3) 01/03/17 03:56 Hct 37.9 % (30.3-42.9) 01/03/17 03:56 MCV 85 fl (79-97) 01/03/17 03:56 MCH 28 pg (28-32) 01/03/17 03:56 MCHC 33 % (30-34) 01/03/17 03:56 RDW 16.1 % (13.2-15.2) H 01/03/17 03:56 Plt Count 335 K/mm3 (140-440) 01/03/17 03:56 Lymph % (Auto) 39.7 % (13.4-35.0) H 01/03/17 03:56 [place] % (Auto) 8.7 % (0.0-7.3) H 01/03/17 03:56 Eos % (Auto) 6.5 % (0.0-4.3) H 01/03/17 03:56 Baso % (Auto) 1.3 % (0.0-1.8) 01/03/17 03:56 Lymph # 2.6 K/mm3 (1.2-5.4) 01/03/17 03:56 [place] # 0.6 K/mm3 (0.0-0.8) 01/03/17 03:56 Eos # 0.4 K/mm3 (0.0-0.4) 01/03/17 03:56 Baso # 0.1 K/mm3 (0.0-0.1) 01/03/17 03:56 Seg Neutrophils % 43.8 % (40.0-70.0) 01/03/17 03:56 Seg Neutrophils # 2.9 K/mm3 (1.8-7.7) 01/03/17 03:56 PT 21.5 Sec. (12.2-14.9) H 01/03/17 03:56 INR 1.87 (0.87-1.13) H 01/03/17 03:56 APTT 31.4 Sec. (24.2-36.6) 01/01/17 11:08 Heparin Anti-Xa Level 0.45 U.I./ml (0.3-0.7) 01/02/17 23:07 Sodium 137 mmol/L (137-145) 01/03/17 03:56 Potassium 3.9 mmol/L (3.6-5.0) 01/03/17 03:56 Chloride 98.6 mmol/L (98-107) 01/03/17 03:56 Carbon Dioxide 23 mmol/L (22-30) 01/03/17 03:56 Anion Gap 19 mmol/L 01/03/17 03:56 BUN 17 mg/dL (7-17) 01/03/17 03:56 Creatinine 1.3 mg/dL (0.7-1.2) H 01/03/17 03:56 Estimated GFR 53 ml/min 01/03/17 03:56 BUN/Creatinine Ratio 13.07 % 01/03/17 03:56 Glucose 86 mg/dL (65-100) 01/03/17 03:56 Calcium 9.1 mg/dL (8.4-10.2) 01/03/17 03:56 Total Bilirubin 0.50 mg/dL (0.1-1.2) 01/03/17 03:56 AST 20 units/L (5-40) 01/03/17 03:56 ALT 12 units/L (7-56) 01/03/17 03:56 Alkaline Phosphatase 56 units/L (35-129) 01/03/17 03:56 Total Creatine Kinase 309 units/L (30-135) H 01/01/17 14:59 CK-MB (CK-2) 3.6 ng/mL (0.0-4.0) 01/01/17 14:59 CK-MB (CK-2) Rel Index 1.1 (0-4) 01/01/17 14:59 Troponin T < 0.010 ng/mL (0.00-0.029) 01/01/17 14:59 NT-Pro-B Natriuret Pep 8352 pg/mL (0-450) H 01/01/17 03:13 Total Protein 7.1 g/dL (6.3-8.2) 01/03/17 03:56 Albumin 3.9 g/dL (3.9-5) 01/03/17 03:56 Albumin/Globulin Ratio 1.2 % 01/03/17 03:56
[2017-01-03] MEDS: COREG PO SCH ×2 (10:32→21:28)
[2017-01-03] MEDS: LASIX PO SCH (10:33)
[2017-01-03] MEDS: ALDACTONE PO SCH (10:33)
[2017-01-03] MEDS: PEPCID PO SCH ×2 (10:33→21:28)
[2017-01-03] MEDS: HALFPRIN EC PO SCH (10:33)
[2017-01-03] MEDS: COZAAR PO SCH (10:36)
--- NOTE | 2017-01-03 14:24 | Progress Note ---
Assessment and Plan Acute on chronic systolic heart failure Chest pain, atypical - Rachid negative for AMI x 2 sets; ECG with NAF. Non-ischemic CMP Subcutaneous AICD in situ H/O mechanical MV replacement - INR goal 2.5 - 3.5 Subtherapeutic INR H/O NSVT H/O HTN - currently with hypotension. HLP H/o CMP Plan: Echo reviewed - LV mild to moderately dilated, EF 30 - 35%, abnormal diastolic function, LA mildly dilated, moderate AR, mechanical prosthetic MV present. Convert IV lasix to PO, 40mg daily. Cont losartan and aldactone. Decrease coreg to 6.25mg PO BID. Cont heparin gtt PO coumadin. D/c heparin gtt once tx INR of 2.5-3.5 is achieved. Her decompensated heart failure,most likely secondary to her non compliance with medication.Ran out of few meds last week, Continue iv heparin till PT/INR in therapeutic range. - Patient Problems (1) CHF exacerbation Current Visit: No Status: Acute Qualifiers: Congestive heart failure type: C (2) GERD (gastroesophageal reflux disease) Current Visit: No Status: Acute Qualifiers: Esophagitis presence: E (3) Mitral valve replaced Current Visit: No Status: Chronic Subjective Date of service: 01/03/17 Principal diagnosis: HF Interval history: no particular complaints,tele showing S.R.Few PVC's in a row. B.P on low side,iv fluids as per hospitalist. Objective Vital Signs Temp Pulse Pulse Resp BP BP Pulse Ox 01/03/17 13:25 81 01/03/17 12:08 97.9 F 93 H 18 122/67 97 01/03/17 10:00 82 18 98 01/03/17 08:32 82 18 128/74 100 01/03/17 04:00 98.1 F 74 18 104/55 98 01/03/17 00:05 20 01/03/17 00:00 98.1 F 84 18 115/83 97 01/02/17 20:20 90 01/02/17 20:00 97.8 F 88 18 140/88 98 01/02/17 17:31 97.5 F L 92 H 20 116/81 99 01/02/17 15:12 90 122/82 01/02/17 15:00 84 - Physical Examination General: Appears Well, No Apparent Distress HEENT: Positive: PERRL, Normocephaly, Mucus Membranes Moist Neck: Positive: neck supple, trachea midline Cardiac: Positive: Reg Rate and Rhythm (valve clicks intact.) Neuro: Positive: Grossly Intact, Cranial Nerve 2-12 Intact Abdomen: Positive: Unremarkable, Soft, Active Bowel Sounds. Negative: Tender Skin: Positive: Clear. Negative: Rash, Wound Musculoskeletal: No Fluid Collection, No Pain, Normal Range of Motion Extremities: Present: normal, upper extr. pulses, lower extr. pulses. Absent: edema - Labs and Meds Cardiac Enzymes 01/03/17 Range/Units 03:56 AST 20 (5-40) units/L Coagulation 01/03/17 Range/Units 03:56 PT 21.5 H (12.2-14.9) Sec. INR 1.87 H (0.87-1.13) CBC 01/03/17 Range/Units 03:56 WBC 6.6 (4.5-11.0) K/mm3 RBC 4.46 (3.65-5.03) M/mm3 Hgb 12.5 (10.1-14.3) gm/dl Hct 37.9 (30.3-42.9) % Plt Count 335 (140-440) K/mm3 Lymph # 2.6 (1.2-5.4) K/mm3 [place] # 0.6 (0.0-0.8) K/mm3 Eos # 0.4 (0.0-0.4) K/mm3 Baso # 0.1 (0.0-0.1) K/mm3 Comprehensive Metabolic Panel 01/03/17 Range/Units 03:56 Sodium 137 (137-145) mmol/L Potassium 3.9 (3.6-5.0) mmol/L Chloride 98.6 (98-107) mmol/L Carbon Dioxide 23 (22-30) mmol/L BUN 17 (7-17) mg/dL Creatinine 1.3 H (0.7-1.2) mg/dL Glucose 86 (65-100) mg/dL Calcium 9.1 (8.4-10.2) mg/dL AST 20 (5-40) units/L ALT 12 (7-56) units/L Alkaline Phosphatase 56 (35-129) units/L Total Protein 7.1 (6.3-8.2) g/dL Albumin 3.9 (3.9-5) g/dL - Imaging and Cardiology EKG: report reviewed, image reviewed Echo: report reviewed Cardiac cath: report reviewed - EKG Sinus rhythms and dysrhythmias: sinus rhythm
[2017-01-03] MEDS: COUMADIN PO SCH (16:56)
[2017-01-03] MEDS: HEPARIN/ 0.45% NACL-25,000 UNIT/500 ML 25,000 UNIT/500 ML BAG IV SCH (21:29)
[2017-01-04] MEDS: PERCOCET 5/325 PO PRN ×2 (02:23→20:00)
[2017-01-04 07:29] LABS: Basophils % (Auto) 2.3 % (0.0-1.8); Eosinophils % (Auto) 5.8 % (0.0-4.3); Hemoglobin 12.4 gm/dl (10.1-14.3); Mean Corpuscular HGB Conc 33 % (30-34); Mean Corpuscular Hemoglobin 28 pg (28-32); Mean Corpuscular Volume 84 fl (79-97); Platelet Count 330 K/mm3 (140-440); Red Cell Distribution Width 16.4 % (13.2-15.2); White Blood Count 5.8 K/mm3 (4.5-11.0)
[2017-01-04 07:40] LABS: INR 2.11 (0.87-1.13)
[2017-01-04 07:54] LABS: Albumin 3.8 g/dL (3.9-5); Albumin/Globulin Ratio 1.2 %; BUN/Creatinine Ratio 12.14; Bilirubin,Total 0.4 mg/dL (0.1-1.2); Calcium 9.3 mg/dL (8.4-10.2); Chloride 99.6 mmol/L (98-107); Potassium 3.9 mmol/L (3.6-5.0); Total Protein 7.1 g/dL (6.3-8.2)
--- NOTE | 2017-01-04 08:12 | Progress Note ---
Assessment and Plan - Patient Problems (1) Systolic CHF, acute on chronic Current Visit: Yes Status: Acute Plan to address problem: Continue current management. Continue Lasix and EUSEBIO inhibitor. Cardiology evaluation appreciated (2) HTN (hypertension) Current Visit: No Status: Chronic Qualifiers: Hypertension type: H Plan to address problem: Patient blood pressure is controlled today (3) Mitral valve replaced Current Visit: No Status: Chronic Plan to address problem: Continue Coumadin and heparin drip. INR is 2.11 today INR goal is 2.5-3.5 History Interval history: Patient lying in bed this morning. Patient stated that she feels fine Hospitalist Physical - Constitutional Vitals: Temp Pulse Resp BP Pulse Ox 97.5 F L 71 20 115/69 98 01/04/17 05:59 01/04/17 05:59 01/04/17 05:59 01/04/17 05:59 01/04/17 05:59 General appearance: Present: no acute distress - EENT Eyes: Present: PERRL, EOM intact ENT: hearing intact, clear oral mucosa - Neck Neck: Present: supple, normal ROM - Respiratory Respiratory effort: normal Respiratory: bilateral: CTA - Cardiovascular Rhythm: regular Heart Sounds: Present: S1 & S2 - Extremities Extremities: no ischemia, No edema - Abdominal General gastrointestinal: soft, non-tender, non-distended, normal bowel sounds - Psychiatric Psychiatric: appropriate mood/affect, intact judgment & insight - Neurologic Neurologic: CNII-XII intact, moves all extremities Results - Labs CBC & Chem 7: 01/04/17 06:35 01/04/17 06:35 Labs: Laboratory Last Values WBC 5.8 K/mm3 (4.5-11.0) 01/04/17 06:35 RBC 4.50 M/mm3 (3.65-5.03) 01/04/17 06:35 Hgb 12.4 gm/dl (10.1-14.3) 01/04/17 06:35 Hct 38.0 % (30.3-42.9) 01/04/17 06:35 MCV 84 fl (79-97) 01/04/17 06:35 MCH 28 pg (28-32) 01/04/17 06:35 MCHC 33 % (30-34) 01/04/17 06:35 RDW 16.4 % (13.2-15.2) H 01/04/17 06:35 Plt Count 330 K/mm3 (140-440) 01/04/17 06:35 Lymph % (Auto) 41.9 % (13.4-35.0) H 01/04/17 06:35 [place] % (Auto) 8.8 % (0.0-7.3) H 01/04/17 06:35 Eos % (Auto) 5.8 % (0.0-4.3) H 01/04/17 06:35 Baso % (Auto) 2.3 % (0.0-1.8) H 01/04/17 06:35 Lymph # 2.4 K/mm3 (1.2-5.4) 01/04/17 06:35 [place] # 0.5 K/mm3 (0.0-0.8) 01/04/17 06:35 Eos # 0.3 K/mm3 (0.0-0.4) 01/04/17 06:35 Baso # 0.1 K/mm3 (0.0-0.1) 01/04/17 06:35 Seg Neutrophils % 41.2 % (40.0-70.0) 01/04/17 06:35 Seg Neutrophils # 2.4 K/mm3 (1.8-7.7) 01/04/17 06:35 PT 23.7 Sec. (12.2-14.9) H 01/04/17 06:35 INR 2.11 (0.87-1.13) H 01/04/17 06:35 APTT 31.4 Sec. (24.2-36.6) 01/01/17 11:08 Heparin Anti-Xa Level 0.59 U.I./ml (0.3-0.7) 01/04/17 00:39 Sodium 138 mmol/L (137-145) 01/04/17 06:35 Potassium 3.9 mmol/L (3.6-5.0) 01/04/17 06:35 Chloride 99.6 mmol/L (98-107) 01/04/17 06:35 Carbon Dioxide 25 mmol/L (22-30) 01/04/17 06:35 Anion Gap 17 mmol/L 01/04/17 06:35 BUN 17 mg/dL (7-17) 01/04/17 06:35 Creatinine 1.4 mg/dL (0.7-1.2) H 01/04/17 06:35 Estimated GFR 49 ml/min 01/04/17 06:35 BUN/Creatinine Ratio 12.14 % 01/04/17 06:35 Glucose 82 mg/dL (65-100) 01/04/17 06:35 Calcium 9.3 mg/dL (8.4-10.2) 01/04/17 06:35 Total Bilirubin 0.40 mg/dL (0.1-1.2) 01/04/17 06:35 AST 16 units/L (5-40) 01/04/17 06:35 ALT 9 units/L (7-56) 01/04/17 06:35 Alkaline Phosphatase 53 units/L (35-129) 01/04/17 06:35 Total Creatine Kinase 309 units/L (30-135) H 01/01/17 14:59 CK-MB (CK-2) 3.6 ng/mL (0.0-4.0) 01/01/17 14:59 CK-MB (CK-2) Rel Index 1.1 (0-4) 01/01/17 14:59 Troponin T < 0.010 ng/mL (0.00-0.029) 01/01/17 14:59 NT-Pro-B Natriuret Pep 8352 pg/mL (0-450) H 01/01/17 03:13 Total Protein 7.1 g/dL (6.3-8.2) 01/04/17 06:35 Albumin 3.8 g/dL (3.9-5) L 01/04/17 06:35 Albumin/Globulin Ratio 1.2 % 01/04/17 06:35
[2017-01-04] MEDS: LASIX PO SCH (10:31)
[2017-01-04] MEDS: PEPCID PO SCH ×2 (10:31→22:22)
[2017-01-04] MEDS: HALFPRIN EC PO SCH (10:31)
[2017-01-04] MEDS: COZAAR PO SCH (10:31)
[2017-01-04] MEDS: ALDACTONE PO SCH (10:32)
[2017-01-04] MEDS: COREG PO SCH ×2 (10:32→22:23)
--- NOTE | 2017-01-04 13:43 | Progress Note ---
Assessment and Plan Acute on chronic systolic heart failure Chest pain, atypical - Rachid negative for AMI x 2 sets; ECG with NAF. Non-ischemic CMP Subcutaneous AICD in situ H/O mechanical MV replacement - INR goal 2.5 - 3.5 Subtherapeutic INR H/O NSVT H/O HTN - currently with hypotension. HLP H/o CMP Plan: Echo reviewed - LV mild to moderately dilated, EF 30 - 35%, abnormal diastolic function, LA mildly dilated, moderate AR, mechanical prosthetic MV present. Convert IV lasix to PO, 40mg daily. Cont losartan and aldactone. Decrease coreg to 6.25mg PO BID. Cont heparin gtt PO coumadin. D/c heparin gtt once tx INR of 2.5-3.5 is achieved. Her decompensated heart failure,most likely secondary to her non compliance with medication.Ran out of few meds last week, Continue iv heparin till PT/INR in therapeutic range. 01/04/2017>INR today is 2.11,continue heparin. - Patient Problems (1) CHF exacerbation Current Visit: No Status: Acute Qualifiers: Congestive heart failure type: C (2) GERD (gastroesophageal reflux disease) Current Visit: No Status: Acute Qualifiers: Esophagitis presence: E (3) Mitral valve replaced Current Visit: No Status: Chronic Subjective Date of service: 01/04/17 Principal diagnosis: HF Interval history: no particular complaints,tele showing S.R.Few PVC's in a row. no particular complaints. Objective Vital Signs Temp Pulse Pulse Resp BP BP Pulse Ox 01/04/17 11:00 97.9 F 77 20 104/70 100 01/04/17 08:36 97.6 F 82 20 104/56 100 01/04/17 05:59 97.5 F L 71 20 115/69 98 01/04/17 01:15 97.5 F L 73 20 108/66 95 01/04/17 00:34 94 H 20 100 01/04/17 00:27 94 H 01/03/17 21:28 92 H 133/90 01/03/17 21:04 97.9 F 92 H 20 133/90 100 01/03/17 16:18 97.8 F 76 18 110/74 100 - Physical Examination General: Appears Well, No Apparent Distress HEENT: Positive: PERRL, Normocephaly, Mucus Membranes Moist Neck: Positive: neck supple, trachea midline Cardiac: Positive: Reg Rate and Rhythm, Other (valve clicks are intact.) Neuro: Positive: Grossly Intact, Cranial Nerve 2-12 Intact Abdomen: Positive: Unremarkable, Soft, Active Bowel Sounds. Negative: Tender Skin: Positive: Clear. Negative: Rash, Wound Musculoskeletal: No Fluid Collection, No Pain, Normal Range of Motion Extremities: Present: normal, upper extr. pulses, lower extr. pulses. Absent: edema - Labs and Meds Cardiac Enzymes 01/04/17 Range/Units 06:35 AST 16 (5-40) units/L Coagulation 01/04/17 Range/Units 06:35 PT 23.7 H (12.2-14.9) Sec. INR 2.11 H (0.87-1.13) CBC 01/04/17 Range/Units 06:35 WBC 5.8 (4.5-11.0) K/mm3 RBC 4.50 (3.65-5.03) M/mm3 Hgb 12.4 (10.1-14.3) gm/dl Hct 38.0 (30.3-42.9) % Plt Count 330 (140-440) K/mm3 Lymph # 2.4 (1.2-5.4) K/mm3 [place] # 0.5 (0.0-0.8) K/mm3 Eos # 0.3 (0.0-0.4) K/mm3 Baso # 0.1 (0.0-0.1) K/mm3 Comprehensive Metabolic Panel 01/04/17 Range/Units 06:35 Sodium 138 (137-145) mmol/L Potassium 3.9 (3.6-5.0) mmol/L Chloride 99.6 (98-107) mmol/L Carbon Dioxide 25 (22-30) mmol/L BUN 17 (7-17) mg/dL Creatinine 1.4 H (0.7-1.2) mg/dL Glucose 82 (65-100) mg/dL Calcium 9.3 (8.4-10.2) mg/dL AST 16 (5-40) units/L ALT 9 (7-56) units/L Alkaline Phosphatase 53 (35-129) units/L Total Protein 7.1 (6.3-8.2) g/dL Albumin 3.8 L (3.9-5) g/dL - Imaging and Cardiology EKG: report reviewed, image reviewed Echo: report reviewed Cardiac cath: report reviewed - Telemetry EKG Rhythm: Sinus Rhythm - EKG Sinus rhythms and dysrhythmias: sinus rhythm Ventricular dysrhythmias: ventricular premature com (sometimes few in a row.)
[2017-01-04] MEDS ORDERED: COUMADIN PO SCH (17:00)
[2017-01-04] MEDS: ZOFRAN IV PRN (18:51)
[2017-01-04] MEDS: HEPARIN/ 0.45% NACL-25,000 UNIT/500 ML 25,000 UNIT/500 ML BAG IV SCH (23:34)
[2017-01-05] MEDS: CLARITIN PO SCH ×2 (00:53→22:03)
[2017-01-05] MEDS: PERCOCET 5/325 PO PRN ×3 (05:29→23:06)
[2017-01-05 08:37] LABS: Eosinophils % (Auto) 4.4 % (0.0-4.3); Hematocrit 36.9 % (30.3-42.9); Hemoglobin 11.8 gm/dl (10.1-14.3); Mean Corpuscular HGB Conc 32 % (30-34); Mean Corpuscular Hemoglobin 27 pg (28-32); Mean Corpuscular Volume 85 fl (79-97); Platelet Count 365 K/mm3 (140-440); Red Blood Count 4.32 M/mm3 (3.65-5.03); Red Cell Distribution Width 16.6 % (13.2-15.2); White Blood Count 8.1 K/mm3 (4.5-11.0)
[2017-01-05 08:49] LABS: INR 1.94 (0.87-1.13)
[2017-01-05 08:53] LABS: Albumin 3.9 g/dL (3.9-5); Albumin/Globulin Ratio 1.3 %; BUN/Creatinine Ratio 13.07; Bilirubin,Total 0.5 mg/dL (0.1-1.2); Calcium 9.7 mg/dL (8.4-10.2); Chloride 100.4 mmol/L (98-107); Potassium 4.4 mmol/L (3.6-5.0); Total Protein 6.9 g/dL (6.3-8.2)
--- NOTE | 2017-01-05 09:09 | Progress Note ---
Assessment and Plan Assessment and plan: Acute on chronic systolic heart failure. Continue Lasix, losartan, Coreg and Aldactone. Cardiology following. Chest pain, atypical - Rachid negative for AMI x 2 sets; ECG with NAF. Non-ischemic CMP. Echocardiogram revealed LV mild to moderately dilated, EF 30 - 35%, abnormal diastolic function, LA mildly dilated, moderate AR, mechanical prosthetic MV present. Subcutaneous AICD in situ H/O mechanical MV replacement - INR goal 2.5 - 3.5. Patient's INR is currently subtherapeutic. Continue heparin drip until INR at goal. H/O NSVT Hypertension. Resume antihypertensive medications when necessary. Hyperlipidemia. H/o CMP History Interval history: No new issues overnight. Hospitalist Physical - Constitutional Vitals: Temp Pulse Resp BP Pulse Ox 98.7 F 68 18 101/68 99 01/05/17 05:50 01/05/17 05:50 01/05/17 05:50 01/05/17 05:50 01/05/17 05:50 General appearance: Present: no acute distress - EENT Eyes: Present: PERRL, EOM intact ENT: hearing intact, clear oral mucosa, dentition normal - Neck Neck: Present: supple, normal ROM - Respiratory Respiratory effort: normal Respiratory: bilateral: CTA - Cardiovascular Rhythm: regular Heart Sounds: Present: S1 & S2. Absent: gallop, rub - Extremities Extremities: no ischemia, No edema, Full ROM - Abdominal General gastrointestinal: soft, non-tender, non-distended, normal bowel sounds - Integumentary Integumentary: Present: clear, warm, dry - Neurologic Neurologic: CNII-XII intact, moves all extremities Results - Labs CBC & Chem 7: 01/05/17 07:30 01/05/17 07:30 Labs: Laboratory Last Values WBC 8.1 K/mm3 (4.5-11.0) 01/05/17 07:30 RBC 4.32 M/mm3 (3.65-5.03) 01/05/17 07:30 Hgb 11.8 gm/dl (10.1-14.3) 01/05/17 07:30 Hct 36.9 % (30.3-42.9) 01/05/17 07:30 MCV 85 fl (79-97) 01/05/17 07:30 MCH 27 pg (28-32) L 01/05/17 07:30 MCHC 32 % (30-34) 01/05/17 07:30 RDW 16.6 % (13.2-15.2) H 01/05/17 07:30 Plt Count 365 K/mm3 (140-440) 01/05/17 07:30 Lymph % (Auto) 29.2 % (13.4-35.0) 01/05/17 07:30 [place] % (Auto) 9.0 % (0.0-7.3) H 01/05/17 07:30 Eos % (Auto) 4.4 % (0.0-4.3) H 01/05/17 07:30 Baso % (Auto) 2.0 % (0.0-1.8) H 01/05/17 07:30 Lymph # 2.4 K/mm3 (1.2-5.4) 01/05/17 07:30 [place] # 0.7 K/mm3 (0.0-0.8) 01/05/17 07:30 Eos # 0.4 K/mm3 (0.0-0.4) 01/05/17 07:30 Baso # 0.2 K/mm3 (0.0-0.1) H 01/05/17 07:30 Seg Neutrophils % 55.4 % (40.0-70.0) 01/05/17 07:30 Seg Neutrophils # 4.5 K/mm3 (1.8-7.7) 01/05/17 07:30 PT 22.2 Sec. (12.2-14.9) H 01/05/17 07:30 INR 1.94 (0.87-1.13) H 01/05/17 07:30 APTT 31.4 Sec. (24.2-36.6) 01/01/17 11:08 Heparin Anti-Xa Level 0.60 U.I./ml (0.3-0.7) 01/05/17 07:30 Sodium 137 mmol/L (137-145) 01/05/17 07:30 Potassium 4.4 mmol/L (3.6-5.0) 01/05/17 07:30 Chloride 100.4 mmol/L (98-107) 01/05/17 07:30 Carbon Dioxide 25 mmol/L (22-30) 01/05/17 07:30 Anion Gap 16 mmol/L 01/05/17 07:30 BUN 17 mg/dL (7-17) 01/05/17 07:30 Creatinine 1.3 mg/dL (0.7-1.2) H 01/05/17 07:30 Estimated GFR 53 ml/min 01/05/17 07:30 BUN/Creatinine Ratio 13.07 % 01/05/17 07:30 Glucose 98 mg/dL (65-100) 01/05/17 07:30 Calcium 9.7 mg/dL (8.4-10.2) 01/05/17 07:30 Total Bilirubin 0.50 mg/dL (0.1-1.2) 01/05/17 07:30 AST 23 units/L (5-40) 01/05/17 07:30 ALT 11 units/L (7-56) 01/05/17 07:30 Alkaline Phosphatase 50 units/L (35-129) 01/05/17 07:30 Total Creatine Kinase 309 units/L (30-135) H 01/01/17 14:59 CK-MB (CK-2) 3.6 ng/mL (0.0-4.0) 01/01/17 14:59 CK-MB (CK-2) Rel Index 1.1 (0-4) 01/01/17 14:59 Troponin T < 0.010 ng/mL (0.00-0.029) 01/01/17 14:59 NT-Pro-B Natriuret Pep 8352 pg/mL (0-450) H 01/01/17 03:13 Total Protein 6.9 g/dL (6.3-8.2) 01/05/17 07:30 Albumin 3.9 g/dL (3.9-5) 01/05/17 07:30 Albumin/Globulin Ratio 1.3 % 01/05/17 07:30
[2017-01-05] MEDS: HALFPRIN EC PO SCH (09:18)
[2017-01-05] MEDS: LASIX PO SCH (09:18)
[2017-01-05] MEDS: COZAAR PO SCH (09:18)
[2017-01-05] MEDS: ALDACTONE PO SCH (09:18)
[2017-01-05] MEDS: COREG PO SCH ×2 (09:19→22:03)
[2017-01-05] MEDS: PEPCID PO SCH ×2 (09:20→22:03)
--- NOTE | 2017-01-05 11:11 | Progress Note ---
Assessment and Plan Assessment: Acute on chronic systolic heart failure - at euvolemia. Chest pain, atypical - currently resolved; Rachid negative for AMI x 2 sets; ECG with NAF. Non-ischemic CMP Subcutaneous AICD in situ H/O mechanical MV replacement - INR goal 2.5 - 3.5 Subtherapeutic INR H/O NSVT H/O HTN - currently with hypotension. HLP H/o CMP Plan: INR 1.94 this AM. Cont heparin gtt PO coumadin. D/c heparin gtt once tx INR of 2.5-3.5 is achieved. Assessment and plan reviewed with pt at bedside. The patient has been seen in conjunction with Dr. Perez who agrees with the assessment and plan of care. Subjective Date of service: 01/05/17 Principal diagnosis: HF Interval history: Pt resting in bed, no complaints. VSS. Heparin gtt infusing. Objective Last Vital Signs Temp 98.7 F 01/05/17 05:50 Pulse 68 01/05/17 05:50 Resp 18 01/05/17 05:50 BP 101/68 01/05/17 05:50 Pulse Ox 99 01/05/17 05:50 - Physical Examination General: Appears Well, No Apparent Distress HEENT: Positive: PERRL, Normocephaly, Mucus Membranes Moist Neck: Positive: neck supple, trachea midline Cardiac: Positive: Reg Rate and Rhythm, S1/S2 Lungs: Positive: Normal Exam, clear to auscultation, Normal Breath Sounds Neuro: Positive: Grossly Intact, Cranial Nerve 2-12 Intact Abdomen: Positive: Unremarkable, Soft, Active Bowel Sounds. Negative: Tender Skin: Positive: Clear. Negative: Rash, Wound Musculoskeletal: No Fluid Collection, No Pain, Normal Range of Motion Extremities: Present: normal, upper extr. pulses, lower extr. pulses. Absent: edema - Labs and Meds Cardiac Enzymes 01/05/17 Range/Units 07:30 AST 23 (5-40) units/L Coagulation 01/05/17 Range/Units 07:30 PT 22.2 H (12.2-14.9) Sec. INR 1.94 H (0.87-1.13) CBC 01/05/17 Range/Units 07:30 WBC 8.1 (4.5-11.0) K/mm3 RBC 4.32 (3.65-5.03) M/mm3 Hgb 11.8 (10.1-14.3) gm/dl Hct 36.9 (30.3-42.9) % Plt Count 365 (140-440) K/mm3 Lymph # 2.4 (1.2-5.4) K/mm3 Nuckolls # 0.7 (0.0-0.8) K/mm3 Eos # 0.4 (0.0-0.4) K/mm3 Baso # 0.2 H (0.0-0.1) K/mm3 Comprehensive Metabolic Panel 01/05/17 Range/Units 07:30 Sodium 137 (137-145) mmol/L Potassium 4.4 (3.6-5.0) mmol/L Chloride 100.4 (98-107) mmol/L Carbon Dioxide 25 (22-30) mmol/L BUN 17 (7-17) mg/dL Creatinine 1.3 H (0.7-1.2) mg/dL Glucose 98 (65-100) mg/dL Calcium 9.7 (8.4-10.2) mg/dL AST 23 (5-40) units/L ALT 11 (7-56) units/L Alkaline Phosphatase 50 (35-129) units/L Total Protein 6.9 (6.3-8.2) g/dL Albumin 3.9 (3.9-5) g/dL - Imaging and Cardiology EKG: report reviewed, image reviewed Echo: report reviewed Cardiac cath: report reviewed - Telemetry EKG Rhythm: Sinus Rhythm - EKG Sinus rhythms and dysrhythmias: sinus rhythm Ventricular dysrhythmias: ventricular premature com (sometimes few in a row.)
[2017-01-05] MEDS ORDERED: COUMADIN PO SCH ×2 (17:00)
[2017-01-06] MEDS: PERCOCET 5/325 PO PRN ×3 (05:20→21:52)
[2017-01-06] MEDS: HEPARIN/ 0.45% NACL-25,000 UNIT/500 ML 25,000 UNIT/500 ML BAG IV SCH (05:21)
[2017-01-06 08:03] LABS: Basophils % (Auto) 1.8 % (0.0-1.8); Eosinophils % (Auto) 8.5 % (0.0-4.3); Hematocrit 38.1 % (30.3-42.9); Hemoglobin 12.1 gm/dl (10.1-14.3); Mean Corpuscular HGB Conc 32 % (30-34); Mean Corpuscular Hemoglobin 27 pg (28-32); Mean Corpuscular Volume 86 fl (79-97); Platelet Count 339 K/mm3 (140-440); Red Blood Count 4.42 M/mm3 (3.65-5.03); Red Cell Distribution Width 16.4 % (13.2-15.2); White Blood Count 6.3 K/mm3 (4.5-11.0)
[2017-01-06 08:17] LABS: INR 1.81 (0.87-1.13)
[2017-01-06 08:28] LABS: BUN/Creatinine Ratio 12.85; Calcium 9.4 mg/dL (8.4-10.2); Chloride 98.8 mmol/L (98-107)
--- NOTE | 2017-01-06 09:43 | Progress Note ---
Assessment and Plan Assessment: Acute on chronic systolic heart failure - at euvolemia. Chest pain, atypical - currently resolved; Rachid negative for AMI x 2 sets; ECG with NAF. Non-ischemic CMP Subcutaneous AICD in situ H/O mechanical MV replacement - INR goal 2.5 - 3.5 Subtherapeutic INR H/O NSVT H/O HTN - currently with hypotension. HLP H/o CMP Plan: INR 1.8 this AM. Cont heparin gtt PO coumadin. D/c heparin gtt once tx INR of 2.5-3.5 is achieved. Assessment and plan reviewed with pt at bedside. The patient has been seen in conjunction with Dr. Perez who agrees with the assessment and plan of care. Subjective Date of service: 01/06/17 Principal diagnosis: HF Interval history: Pt resting in bed, no complaints. VSS. Heparin gtt infusing. Objective Last Vital Signs Temp 97.4 F L 01/06/17 04:35 Pulse 85 01/06/17 04:35 Resp 20 01/06/17 06:20 BP 107/65 01/06/17 04:35 Pulse Ox 99 01/06/17 04:35 - Physical Examination General: Appears Well, No Apparent Distress HEENT: Positive: PERRL, Normocephaly, Mucus Membranes Moist Neck: Positive: neck supple, trachea midline Cardiac: Positive: Reg Rate and Rhythm, S1/S2 Lungs: Positive: Normal Exam, clear to auscultation, Normal Breath Sounds Neuro: Positive: Grossly Intact, Cranial Nerve 2-12 Intact Abdomen: Positive: Unremarkable, Soft, Active Bowel Sounds. Negative: Tender Skin: Positive: Clear. Negative: Rash, Wound Musculoskeletal: No Fluid Collection, No Pain, Normal Range of Motion Extremities: Present: normal, upper extr. pulses, lower extr. pulses. Absent: edema - Labs and Meds Coagulation 01/06/17 Range/Units 06:51 PT 21.0 H (12.2-14.9) Sec. INR 1.81 H (0.87-1.13) CBC 01/06/17 Range/Units 06:51 WBC 6.3 (4.5-11.0) K/mm3 RBC 4.42 (3.65-5.03) M/mm3 Hgb 12.1 (10.1-14.3) gm/dl Hct 38.1 (30.3-42.9) % Plt Count 339 (140-440) K/mm3 Lymph # 2.2 (1.2-5.4) K/mm3 [place] # 0.7 (0.0-0.8) K/mm3 Eos # 0.5 H (0.0-0.4) K/mm3 Baso # 0.1 (0.0-0.1) K/mm3 Comprehensive Metabolic Panel 01/06/17 Range/Units 06:51 Sodium 137 (137-145) mmol/L Potassium 4.0 (3.6-5.0) mmol/L Chloride 98.8 (98-107) mmol/L Carbon Dioxide 25 (22-30) mmol/L BUN 18 H (7-17) mg/dL Creatinine 1.4 H (0.7-1.2) mg/dL Glucose 84 (65-100) mg/dL Calcium 9.4 (8.4-10.2) mg/dL - Imaging and Cardiology EKG: report reviewed, image reviewed Echo: report reviewed Cardiac cath: report reviewed - Telemetry EKG Rhythm: Sinus Rhythm - EKG Sinus rhythms and dysrhythmias: sinus rhythm Ventricular dysrhythmias: ventricular premature com (sometimes few in a row.)
[2017-01-06] MEDS: COREG PO SCH ×2 (10:08→21:51)
[2017-01-06] MEDS: ALDACTONE PO SCH (10:08)
[2017-01-06] MEDS: COZAAR PO SCH (10:08)
[2017-01-06] MEDS: PEPCID PO SCH ×2 (10:08→21:51)
[2017-01-06] MEDS: HALFPRIN EC PO SCH (10:08)
[2017-01-06] MEDS: LASIX PO SCH (10:08)
--- NOTE | 2017-01-06 13:05 | Progress Note ---
Assessment and Plan Assessment and plan: Acute on chronic systolic heart failure. Continue Lasix, losartan, Coreg and Aldactone. Cardiology following. Chest pain, atypical - Rachid negative for AMI x 2 sets; ECG with NAF. Non-ischemic CMP. Echocardiogram revealed LV mild to moderately dilated, EF 30 - 35%, abnormal diastolic function, LA mildly dilated, moderate AR, mechanical prosthetic MV present. Subcutaneous AICD in situ H/O mechanical MV replacement - INR goal 2.5 - 3.5. Patient's INR is currently subtherapeutic. Continue heparin drip until INR at goal. H/O NSVT Hypertension. Resume antihypertensive medications when necessary. Hyperlipidemia. H/o CMP History Interval history: No new issues overnight. Hospitalist Physical - Constitutional Vitals: Temp Pulse Resp BP Pulse Ox 98.6 F 80 16 121/63 96 01/06/17 08:15 01/06/17 10:00 01/06/17 10:00 01/06/17 08:15 01/06/17 10:00 General appearance: Present: no acute distress - EENT Eyes: Present: PERRL, EOM intact ENT: hearing intact, clear oral mucosa, dentition normal - Neck Neck: Present: supple, normal ROM - Respiratory Respiratory effort: normal Respiratory: bilateral: CTA - Cardiovascular Rhythm: regular Heart Sounds: Present: S1 & S2. Absent: gallop, rub - Extremities Extremities: no ischemia, No edema, Full ROM - Abdominal General gastrointestinal: soft, non-tender, non-distended, normal bowel sounds - Integumentary Integumentary: Present: clear, warm, dry - Neurologic Neurologic: CNII-XII intact, moves all extremities Results - Labs CBC & Chem 7: 01/06/17 06:51 01/06/17 06:51 Labs: Laboratory Last Values WBC 6.3 K/mm3 (4.5-11.0) 01/06/17 06:51 RBC 4.42 M/mm3 (3.65-5.03) 01/06/17 06:51 Hgb 12.1 gm/dl (10.1-14.3) 01/06/17 06:51 Hct 38.1 % (30.3-42.9) 01/06/17 06:51 MCV 86 fl (79-97) 01/06/17 06:51 MCH 27 pg (28-32) L 01/06/17 06:51 MCHC 32 % (30-34) 01/06/17 06:51 RDW 16.4 % (13.2-15.2) H 01/06/17 06:51 Plt Count 339 K/mm3 (140-440) 01/06/17 06:51 Lymph % (Auto) 34.7 % (13.4-35.0) 01/06/17 06:51 [place] % (Auto) 11.3 % (0.0-7.3) H 01/06/17 06:51 Eos % (Auto) 8.5 % (0.0-4.3) H 01/06/17 06:51 Baso % (Auto) 1.8 % (0.0-1.8) 01/06/17 06:51 Lymph # 2.2 K/mm3 (1.2-5.4) 01/06/17 06:51 [place] # 0.7 K/mm3 (0.0-0.8) 01/06/17 06:51 Eos # 0.5 K/mm3 (0.0-0.4) H 01/06/17 06:51 Baso # 0.1 K/mm3 (0.0-0.1) 01/06/17 06:51 Seg Neutrophils % 43.7 % (40.0-70.0) 01/06/17 06:51 Seg Neutrophils # 2.8 K/mm3 (1.8-7.7) 01/06/17 06:51 PT 21.0 Sec. (12.2-14.9) H 01/06/17 06:51 INR 1.81 (0.87-1.13) H 01/06/17 06:51 APTT 31.4 Sec. (24.2-36.6) 01/01/17 11:08 Heparin Anti-Xa Level 0.63 U.I./ml (0.3-0.7) 01/06/17 06:51 Sodium 137 mmol/L (137-145) 01/06/17 06:51 Potassium 4.0 mmol/L (3.6-5.0) 01/06/17 06:51 Chloride 98.8 mmol/L (98-107) 01/06/17 06:51 Carbon Dioxide 25 mmol/L (22-30) 01/06/17 06:51 Anion Gap 17 mmol/L 01/06/17 06:51 BUN 18 mg/dL (7-17) H 01/06/17 06:51 Creatinine 1.4 mg/dL (0.7-1.2) H 01/06/17 06:51 Estimated GFR 49 ml/min 01/06/17 06:51 BUN/Creatinine Ratio 12.85 % 01/06/17 06:51 Glucose 84 mg/dL (65-100) 01/06/17 06:51 Calcium 9.4 mg/dL (8.4-10.2) 01/06/17 06:51 Total Bilirubin 0.50 mg/dL (0.1-1.2) 01/05/17 07:30 AST 23 units/L (5-40) 01/05/17 07:30 ALT 11 units/L (7-56) 01/05/17 07:30 Alkaline Phosphatase 50 units/L (35-129) 01/05/17 07:30 Total Creatine Kinase 309 units/L (30-135) H 01/01/17 14:59 CK-MB (CK-2) 3.6 ng/mL (0.0-4.0) 01/01/17 14:59 CK-MB (CK-2) Rel Index 1.1 (0-4) 01/01/17 14:59 Troponin T < 0.010 ng/mL (0.00-0.029) 01/01/17 14:59 NT-Pro-B Natriuret Pep 8352 pg/mL (0-450) H 01/01/17 03:13 Total Protein 6.9 g/dL (6.3-8.2) 01/05/17 07:30 Albumin 3.9 g/dL (3.9-5) 01/05/17 07:30 Albumin/Globulin Ratio 1.3 % 01/05/17 07:30
[2017-01-06] MEDS: COUMADIN PO SCH (16:46)
[2017-01-06] MEDS: CLARITIN PO SCH (21:51)
[2017-01-07] MEDS: PERCOCET 5/325 PO PRN ×2 (03:37→21:22)
[2017-01-07 05:04] LABS: Basophils % (Auto) 1.8 % (0.0-1.8); Eosinophils % (Auto) 4.3 % (0.0-4.3); Hemoglobin 12.6 gm/dl (10.1-14.3); Mean Corpuscular HGB Conc 34 % (30-34); Mean Corpuscular Hemoglobin 29 pg (28-32); Mean Corpuscular Volume 84 fl (79-97); Platelet Count 343 K/mm3 (140-440); Red Cell Distribution Width 16.6 % (13.2-15.2)
[2017-01-07 05:16] LABS: INR 1.88 (0.87-1.13)
[2017-01-07 05:26] LABS: BUN/Creatinine Ratio 11.17; Calcium 9.5 mg/dL (8.4-10.2); Chloride 99.3 mmol/L (98-107); Potassium 4.4 mmol/L (3.6-5.0)
[2017-01-07] MEDS: HALFPRIN EC PO SCH (09:35)
[2017-01-07] MEDS: COZAAR PO SCH (09:35)
[2017-01-07] MEDS: COREG PO SCH ×2 (09:36→21:20)
[2017-01-07] MEDS: PEPCID PO SCH ×2 (09:36→21:21)
[2017-01-07] MEDS: ALDACTONE PO SCH (09:36)
[2017-01-07] MEDS: LASIX PO SCH (09:36)
--- NOTE | 2017-01-07 10:16 | Progress Note ---
Assessment and Plan Assessment and plan: Acute on chronic systolic heart failure. Continue Lasix, losartan, Coreg and Aldactone. Cardiology following. Chest pain, atypical - Rachid negative for AMI x 2 sets; ECG with NAF. Non-ischemic CMP. Echocardiogram revealed LV mild to moderately dilated, EF 30 - 35%, abnormal diastolic function, LA mildly dilated, moderate AR, mechanical prosthetic MV present. Subcutaneous AICD in situ H/O mechanical MV replacement - INR goal 2.5 - 3.5. Patient's INR is currently subtherapeutic. Continue heparin drip until INR at goal. H/O NSVT Hypertension. Resume antihypertensive medications when necessary. Hyperlipidemia. H/o CMP History Interval history: No new issues overnight. Hospitalist Physical - Constitutional Vitals: Temp Pulse Resp BP Pulse Ox 97.6 F 89 20 109/60 98 01/07/17 08:17 01/07/17 08:17 01/07/17 08:17 01/07/17 08:17 01/07/17 08:17 General appearance: Present: no acute distress - EENT Eyes: Present: PERRL, EOM intact ENT: hearing intact, clear oral mucosa, dentition normal - Neck Neck: Present: supple, normal ROM - Respiratory Respiratory effort: normal Respiratory: bilateral: CTA - Cardiovascular Rhythm: regular Heart Sounds: Present: S1 & S2. Absent: gallop, rub - Extremities Extremities: no ischemia, No edema, Full ROM - Abdominal General gastrointestinal: soft, non-tender, non-distended, normal bowel sounds - Integumentary Integumentary: Present: clear, warm, dry - Neurologic Neurologic: CNII-XII intact, moves all extremities Results - Labs CBC & Chem 7: 01/07/17 04:33 01/07/17 04:33 Labs: Laboratory Last Values WBC 9.0 K/mm3 (4.5-11.0) 01/07/17 04:33 RBC 4.40 M/mm3 (3.65-5.03) 01/07/17 04:33 Hgb 12.6 gm/dl (10.1-14.3) 01/07/17 04:33 Hct 37.0 % (30.3-42.9) 01/07/17 04:33 MCV 84 fl (79-97) 01/07/17 04:33 MCH 29 pg (28-32) 01/07/17 04:33 MCHC 34 % (30-34) 01/07/17 04:33 RDW 16.6 % (13.2-15.2) H 01/07/17 04:33 Plt Count 343 K/mm3 (140-440) 01/07/17 04:33 Lymph % (Auto) 32.0 % (13.4-35.0) 01/07/17 04:33 [place] % (Auto) 10.2 % (0.0-7.3) H 01/07/17 04:33 Eos % (Auto) 4.3 % (0.0-4.3) 01/07/17 04:33 Baso % (Auto) 1.8 % (0.0-1.8) 01/07/17 04:33 Lymph # 2.9 K/mm3 (1.2-5.4) 01/07/17 04:33 [place] # 0.9 K/mm3 (0.0-0.8) H 01/07/17 04:33 Eos # 0.4 K/mm3 (0.0-0.4) 01/07/17 04:33 Baso # 0.2 K/mm3 (0.0-0.1) H 01/07/17 04:33 Seg Neutrophils % 51.7 % (40.0-70.0) 01/07/17 04:33 Seg Neutrophils # 4.6 K/mm3 (1.8-7.7) 01/07/17 04:33 PT 21.6 Sec. (12.2-14.9) H 01/07/17 04:33 INR 1.88 (0.87-1.13) H 01/07/17 04:33 APTT 31.4 Sec. (24.2-36.6) 01/01/17 11:08 Heparin Anti-Xa Level 0.74 U.I./ml (0.3-0.7) H 01/07/17 04:33 Sodium 138 mmol/L (137-145) 01/07/17 04:33 Potassium 4.4 mmol/L (3.6-5.0) 01/07/17 04:33 Chloride 99.3 mmol/L (98-107) 01/07/17 04:33 Carbon Dioxide 25 mmol/L (22-30) 01/07/17 04:33 Anion Gap 18 mmol/L 01/07/17 04:33 BUN 19 mg/dL (7-17) H 01/07/17 04:33 Creatinine 1.7 mg/dL (0.7-1.2) H 01/07/17 04:33 Estimated GFR 39 ml/min 01/07/17 04:33 BUN/Creatinine Ratio 11.17 % 01/07/17 04:33 Glucose 94 mg/dL (65-100) 01/07/17 04:33 Calcium 9.5 mg/dL (8.4-10.2) 01/07/17 04:33 Total Bilirubin 0.50 mg/dL (0.1-1.2) 01/05/17 07:30 AST 23 units/L (5-40) 01/05/17 07:30 ALT 11 units/L (7-56) 01/05/17 07:30 Alkaline Phosphatase 50 units/L (35-129) 01/05/17 07:30 Total Creatine Kinase 309 units/L (30-135) H 01/01/17 14:59 CK-MB (CK-2) 3.6 ng/mL (0.0-4.0) 01/01/17 14:59 CK-MB (CK-2) Rel Index 1.1 (0-4) 01/01/17 14:59 Troponin T < 0.010 ng/mL (0.00-0.029) 01/01/17 14:59 NT-Pro-B Natriuret Pep 8352 pg/mL (0-450) H 01/01/17 03:13 Total Protein 6.9 g/dL (6.3-8.2) 01/05/17 07:30 Albumin 3.9 g/dL (3.9-5) 01/05/17 07:30 Albumin/Globulin Ratio 1.3 % 01/05/17 07:30
[2017-01-07] MEDS: HEPARIN/ 0.45% NACL-25,000 UNIT/500 ML 25,000 UNIT/500 ML BAG IV SCH (11:30)
--- NOTE | 2017-01-07 13:12 | Progress Note ---
Assessment and Plan Assessment: Acute on chronic systolic heart failure - at euvolemia. Chest pain, atypical - currently resolved; Rachid negative for AMI x 2 sets; ECG with NAF. Non-ischemic CMP Subcutaneous AICD in situ H/O mechanical MV replacement - INR goal 2.5 - 3.5 Subtherapeutic INR H/O NSVT H/O HTN - currently with hypotension. HLP H/o CMP Plan: INR 1.88 this AM. Cont heparin gtt PO coumadin. D/c heparin gtt once tx INR of 2.5-3.5 is achieved. Currently stable cardiac status. Will see PRN. Recommend follow up in our office with Dr. Ram within 1-2 weeks of hospital discharge ([phone]). Assessment and plan reviewed with pt at bedside. The patient has been seen in conjunction with Dr. Perez who agrees with the assessment and plan of care. Subjective Date of service: 01/07/17 Principal diagnosis: HF Interval history: Pt resting in bed, no complaints. VSS. Heparin gtt infusing. Objective Last Vital Signs Temp 97.3 F L 01/07/17 12:53 Pulse 96 H 01/07/17 12:53 Resp 20 01/07/17 12:53 BP 112/79 01/07/17 12:53 Pulse Ox 86 01/07/17 12:53 - Physical Examination General: Appears Well, No Apparent Distress HEENT: Positive: PERRL, Normocephaly, Mucus Membranes Moist Neck: Positive: neck supple, trachea midline Cardiac: Positive: Reg Rate and Rhythm, S1/S2 Lungs: Positive: clear to auscultation, Normal Breath Sounds Neuro: Positive: Grossly Intact, Cranial Nerve 2-12 Intact Abdomen: Positive: Unremarkable, Soft, Active Bowel Sounds. Negative: Tender Skin: Positive: Clear. Negative: Rash, Wound Musculoskeletal: No Fluid Collection, No Pain, Normal Range of Motion Extremities: Present: normal, upper extr. pulses, lower extr. pulses. Absent: edema - Labs and Meds Coagulation 01/07/17 Range/Units 04:33 PT 21.6 H (12.2-14.9) Sec. INR 1.88 H (0.87-1.13) CBC 01/07/17 Range/Units 04:33 WBC 9.0 (4.5-11.0) K/mm3 RBC 4.40 (3.65-5.03) M/mm3 Hgb 12.6 (10.1-14.3) gm/dl Hct 37.0 (30.3-42.9) % Plt Count 343 (140-440) K/mm3 Lymph # 2.9 (1.2-5.4) K/mm3 [place] # 0.9 H (0.0-0.8) K/mm3 Eos # 0.4 (0.0-0.4) K/mm3 Baso # 0.2 H (0.0-0.1) K/mm3 Comprehensive Metabolic Panel 01/07/17 Range/Units 04:33 Sodium 138 (137-145) mmol/L Potassium 4.4 (3.6-5.0) mmol/L Chloride 99.3 (98-107) mmol/L Carbon Dioxide 25 (22-30) mmol/L BUN 19 H (7-17) mg/dL Creatinine 1.7 H (0.7-1.2) mg/dL Glucose 94 (65-100) mg/dL Calcium 9.5 (8.4-10.2) mg/dL - Imaging and Cardiology EKG: report reviewed, image reviewed Echo: report reviewed Cardiac cath: report reviewed - Telemetry EKG Rhythm: Sinus Rhythm - EKG Sinus rhythms and dysrhythmias: sinus rhythm Ventricular dysrhythmias: ventricular premature com (sometimes few in a row.)
[2017-01-07] MEDS: COUMADIN PO SCH (17:06)
[2017-01-07] MEDS: CLARITIN PO SCH (21:20)
[2017-01-08] MEDS: PERCOCET 5/325 PO PRN (05:24)
[2017-01-08 09:13] LABS: Eosinophils % (Auto) 7.5 % (0.0-4.3); Hematocrit 37.3 % (30.3-42.9); Hemoglobin 11.9 gm/dl (10.1-14.3); Mean Corpuscular HGB Conc 32 % (30-34); Mean Corpuscular Hemoglobin 27 pg (28-32); Mean Corpuscular Volume 85 fl (79-97); Platelet Count 332 K/mm3 (140-440); Red Blood Count 4.39 M/mm3 (3.65-5.03); Red Cell Distribution Width 16.1 % (13.2-15.2)
[2017-01-08 09:23] LABS: INR 2.52 (0.87-1.13)
[2017-01-08 09:29] LABS: BUN/Creatinine Ratio 12.85; Calcium 9.3 mg/dL (8.4-10.2); Chloride 100.1 mmol/L (98-107); Potassium 4.2 mmol/L (3.6-5.0)
--- NOTE | 2017-01-08 09:32 | Discharge Summary ---
Providers - Providers Date of Admission: 01/01/17 06:05 Date of discharge: 01/08/17 Attending physician: COLTON CAZARES Primary care physician: SKI GUIDE Hospitalization Reason for admission: cp, chf Condition: Fair Hospital course: The patient is a 46 year old female who presented with a history significant for chronic systolic heart failure, non-ischemic cardiomyopathy s/p subcutaneous AICD, mechanical mitral valve on coumadin, AI, HTN, HLP, cardiomyopathy, and syncope c/o progressively worsening SOB, orthopnea, and chest pain x 1 week [facility]. She described her chest pain as a nonexertional, nonradiating, constant circumferential chest tightness. She denied palpitations, n/v, fever, chills, diaphoresis, dizziness, or syncope. She ran out of her Lasix on and thus had not taken any since then. Rachid negative for AMI. INR 1.22 on admission. Stress test 08/16/2016 was negative for ischemia, EF 43%. Echo done 01/2016 showed mild LVH, EF 30-35%, moderate AR. Cath in 09/2012 revealed normal coronaries. EKG showed no acute findings. Patient was seen by cardiology in consultation. Echocardiogram completed on this hospitalization revealed LV mild to moderately dilated, EF 30 - 35%, abnormal diastolic function, LA mildly dilated, moderate AR, mechanical prosthetic MV present. Patient was treated with IV Lasix, losartan, Coreg and Aldactone. Patient received anticoagulation with heparin drip bridge and by mouth Coumadin. Cardiology felt that her decompensated heart failure was most likely secondary to her medical noncompliance. The chest pain was considered atypical and resolved on hospitalization. Cardiology felt the patient could be discharged home and follow-up with Dr. Verdugo next week. Dedicated discharge time 32 minutes. Disposition: DISCHARGED TO HOME OR SELFCARE Time spent for discharge: 32 - Discharge Diagnoses (1) Difficulty breathing Status: Acute (2) Systolic CHF, acute on chronic Status: Acute (3) Acute on chronic systolic (congestive) heart failure Status: Acute (4) Chest pain Status: Acute Qualifiers: Chest pain type: C Ischemic chest pain type: I Comment: due to GERD (5) GERD (gastroesophageal reflux disease) Status: Acute Qualifiers: Esophagitis presence: E (6) Noncompliance Status: Acute (7) HTN (hypertension) Status: Chronic Qualifiers: Hypertension type: H (8) Mitral valve replaced Status: Chronic (9) Obesity Status: Chronic Qualifiers: Obesity type: O Obesity severity: O Core Measure Documentation - Palliative Care Palliative Care/ Comfort Measures: Not Applicable - Core Measures Any of the following diagnoses?: heart failure - Heart Failure Discharge Requirements EUSEBIO/ARB for LVSD if EF <40%: Yes Beta shelbi at discharge: Yes Exam - Constitutional Vitals: Temp Pulse Resp BP Pulse Ox 97.9 F 86 20 105/63 96 01/08/17 08:35 01/08/17 08:35 01/08/17 08:35 01/08/17 08:35 01/08/17 08:35 General appearance: Present: no acute distress, well-nourished - EENT Eyes: Present: PERRL ENT: hearing intact, clear oral mucosa - Neck Neck: Present: supple, normal ROM - Respiratory Respiratory effort: normal Respiratory: bilateral: CTA - Cardiovascular Heart Sounds: Present: S1 & S2. Absent: rub, click - Extremities Extremities: pulses symmetrical, No edema Peripheral Pulses: within normal limits - Abdominal General gastrointestinal: Present: soft, non-tender, non-distended, normal bowel sounds Female genitourinary: Present: normal - Integumentary Integumentary: Present: clear, warm, dry - Musculoskeletal Musculoskeletal: gait normal, strength equal bilaterally - Psychiatric Psychiatric: appropriate mood/affect, intact judgment & insight - Neurologic Neurologic: CNII-XII intact, moves all extremities Plan Activity: no restrictions Weight Bearing Status: Full Weight Bearing Diet: low fat, low cholesterol, low salt Follow up with: PRIMARY CAREMD [Primary Care Provider] - 3-5 Days SAMMIE VERDUGO MD [Staff Physician] - 7 Days Forms: Warfarin Discharge Instruction Prescriptions: Aspirin EC [Aspirin Enteric Coated TAB] 81 mg PO QDAY #30 tablet Carvedilol [Coreg] 6.25 mg PO BID #60 tablet Famotidine [Pepcid] 20 mg PO BID #60 tablet Furosemide [Lasix TAB] 40 mg PO QDAY #30 tablet Losartan [Cozaar] 25 mg PO QDAY #30 tablet oxyCODONE /ACETAMINOPHEN [Percocet 5/325 mg] 1 tab PO Q6H PRN #20 tablet PRN Reason: Pain, Moderate (4-6) Spironolactone [Aldactone] 25 mg PO QDAY #30 tablet Warfarin [Coumadin] 10 mg PO DAILY@1700 #30 tablet
[2017-01-08] MEDS: HALFPRIN EC PO SCH (10:58)
[2017-01-08] MEDS: COZAAR PO SCH (10:58)
[2017-01-08] MEDS: LASIX PO SCH (10:59)
[2017-01-08] MEDS: ALDACTONE PO SCH (10:59)
[2017-01-08] MEDS: PEPCID PO SCH (10:59)
[2017-01-08] MEDS: COREG PO SCH (11:00)
[2017-01-08 11:56] VITALS: BP 148/83
== END 2017-01-08 12:40 | disposition home or self-care (01) | DRG 292 ==
LOC: ED 02:49 → 4A 06:05
PROVIDERS: ADMIT Internal Medicine; ATTEND Hospitalist
DX: I11.0 Hypertensive heart disease with heart failure (principal); Z68.41 Body mass index [BMI] 40.0-44.9, adult; I50.23 Acute on chronic systolic (congestive) heart failure; G89.29 Other chronic pain; M54.9 Dorsalgia, unspecified; E78.5 Hyperlipidemia, unspecified; R07.89 Other chest pain; I42.9 Cardiomyopathy, unspecified; I95.9 Hypotension, unspecified; K21.9 Gastro-esophageal reflux disease without esophagitis; I35.1 Nonrheumatic aortic (valve) insufficiency; E66.9 Obesity, unspecified; Z95.2 Presence of prosthetic heart valve; Z95.810 Presence of automatic (implantable) cardiac defibrillator; Z88.8 Allergy status to other drugs, medicaments and biological substances; Z91.14 Patient's other noncompliance with medication regimen; Z79.01 Long term (current) use of anticoagulants; Z82.49 Family history of ischemic heart disease and other diseases of the circulatory system
CPT/HCPCS: 36415; 71020; 80048; 80053; 82550; 82553; 83880; 84484; 85014; 85018; 85025; 85049; 85520; 85610; 85730; 93005; 93010; 93306; 94640; 96374; 96375; J0360; J1644; J1650; J1940; J2270; J2405; J7050

== ENCOUNTER 2018-03-20 23:17 | Inpatient (IN) | payer SELFPAY ==
[2018-03-21] MEDS ORDERED: NACL 0.9% 1000 ML 1,000 ML IV ONE (04:55)
[2018-03-21] MEDS ORDERED: ZOFRAN IV ONE (04:56)
[2018-03-21 05:30] LABS: Basophils % (Auto) 0.4 % (0.0-1.8); Eosinophils # (Auto) 0.2 K/mm3 (0.0-0.4); Eosinophils % (Auto) 1.8 % (0.0-4.3); Hematocrit 35.9 % (30.3-42.9); Hemoglobin 11.6 gm/dl (10.1-14.3); Lymphocytes # (Auto) 2.1 K/mm3 (1.2-5.4); Lymphocytes % (Auto) 25.3 % (13.4-35.0); Mean Corpuscular HGB Conc 32 % (30-34); Mean Corpuscular Hemoglobin 26 pg (28-32); Mean Corpuscular Volume 82 fl (79-97); Monocytes # (Auto) 0.4 K/mm3 (0.0-0.8); Monocytes % (Auto) 5.1 % (0.0-7.3); Platelet Count 432 K/mm3 (140-440); Red Blood Count 4.39 M/mm3 (3.65-5.03); Red Cell Distribution Width 18.9 % (13.2-15.2)
[2018-03-21 05:51] LABS: Alanine Aminotransferase 19 units/L (7-56); Albumin 4.2 g/dL (3.9-5); BUN/Creatinine Ratio 11; Blood Urea Nitrogen 10 mg/dL (7-17); Calcium 9.4 mg/dL (8.4-10.2); Hemolysis Index 5; Lipase 19 units/L (13-60)
[2018-03-21 05:56] LABS: INR 1.23 (0.87-1.13)
[2018-03-21 05:57] LABS: Partial Thromboplastin Time 27.5 Sec. (24.2-36.6)
--- NOTE | 2018-03-21 07:13 | Emergency Department Report ---
ED General Adult HPI - General Chief complaint: Nausea/Vomiting/Diarrhea Stated complaint: ABDOMINAL PAIN,NAUSEA,DIZZY Time Seen by Provider: 03/21/18 07:11 Source: patient, family Mode of arrival: Ambulatory Limitations: No Limitations - History of Present Illness Initial comments: This is a 47-year-old female that had an extensive workup mid February for similar symptoms. She complains of right upper quadrant pain and some discomfort in her lower abdomen as well. She states he's been nauseated and unable to take her Coumadin for the last several days. She was given Zofran prior to my arrival. She is not actively vomiting. Complains of chronic shortness of breath but is lying prone or supine with no increased work of breathing. She does not complain of chest pain. She does not complain of any urinary type symptoms. She states that she can't take any of her medications. She states that her symptoms are the same as they were in February. She was seen by Dr. Dave Moe who signed off on the case from a GI point of view stating that the patient had passive congestion of her liver or cardiac basis. She had a hepatobiliary study and ultrasound of the gallbladder and a CT which were essentially nondiagnostic. I do note a positive urine drug screen for cocaine on 02/24/2018. Patient also has a history of medical noncompliance. Drug screen and a CK will be obtained. -: days(s) Location: abdomen Radiation: non-radiation Quality: aching Consistency: intermittent Improves with: none Worsens with: none Associated Symptoms: nausea/vomiting Treatments Prior to Arrival: none - Related Data Home Medications Medication Instructions Recorded Confirmed Last Taken Carvedilol [Coreg] 25 mg PO BID 02/23/18 02/23/18 Unknown Furosemide [Lasix TAB] 40 mg PO BID 02/23/18 02/23/18 Unknown Warfarin [Coumadin] 10 mg PO QDAY 02/23/18 02/23/18 Unknown Previous Rx's Medication Instructions Recorded Last Taken Type Losartan [Cozaar] 25 mg PO QDAY #30 tablet 01/08/17 Unknown Rx Spironolactone [Aldactone] 25 mg PO QDAY #30 tablet 01/08/17 Unknown Rx HYDROcodone/ACETAMINOPHEN [[place] 1 each PO Q6H #12 tablet 02/27/18 Unknown Rx 5-325 Tablet] Pantoprazole [Protonix] 40 mg PO QDAY #30 tablet 02/27/18 Unknown Rx Allergies Allergy/AdvReac Type Severity Reaction Status Date / Time Nyqoasj-Xwp-Uab Reductase Allergy Unknown Verified 05/14/16 12:53 Inhibitor ED Review of Systems ROS: Stated complaint: ABDOMINAL PAIN,NAUSEA,DIZZY Other details as noted in HPI Constitutional: denies: chills, fever Eyes: denies: eye pain, eye discharge, vision change ENT: denies: ear pain, throat pain Respiratory: denies: cough, shortness of breath, wheezing Cardiovascular: denies: chest pain, palpitations Endocrine: no symptoms reported Gastrointestinal: abdominal pain, nausea, vomiting. denies: diarrhea Genitourinary: denies: urgency, dysuria, discharge Musculoskeletal: denies: back pain, joint swelling, arthralgia Skin: denies: rash, lesions Neurological: denies: headache, weakness, paresthesias Psychiatric: denies: anxiety, depression Hematological/Lymphatic: denies: easy bleeding, easy bruising ED Past Medical Hx - Past Medical History Hx Hypertension: Yes Hx Congestive Heart Failure: Yes Hx Diabetes: No Hx Asthma: No Hx COPD: No Additional medical history: MVP - Surgical History Hx Pacemaker: Yes Additional Surgical History: mechanical heart valve-2012 - Social History Smoking Status: Never Smoker Substance Use Type: None - Medications Home Medications: Home Medications Medication Instructions Recorded Confirmed Last Taken Type Losartan [Cozaar] 25 mg PO QDAY #30 tablet 01/08/17 02/23/18 Unknown Rx Spironolactone [Aldactone] 25 mg PO QDAY #30 tablet 01/08/17 02/23/18 Unknown Rx Carvedilol [Coreg] 25 mg PO BID 02/23/18 02/23/18 Unknown History Furosemide [Lasix TAB] 40 mg PO BID 02/23/18 02/23/18 Unknown History Warfarin [Coumadin] 10 mg PO QDAY 02/23/18 02/23/18 Unknown History HYDROcodone/ACETAMINOPHEN [[place] 1 each PO Q6H #12 tablet 02/27/18 Unknown Rx 5-325 Tablet] Pantoprazole [Protonix] 40 mg PO QDAY #30 tablet 02/27/18 Unknown Rx ED Physical Exam - General Limitations: No Limitations General appearance: alert, in no apparent distress - Head Head exam: Present: atraumatic, normocephalic - Eye Eye exam: Present: normal appearance, PERRL, EOMI. Absent: scleral icterus - ENT ENT exam: Present: mucous membranes moist - Neck Neck exam: Present: normal inspection. Absent: tenderness, meningismus - Respiratory Respiratory exam: Present: normal lung sounds bilaterally. Absent: respiratory distress - Cardiovascular Cardiovascular Exam: Present: regular rate, normal rhythm. Absent: systolic murmur, diastolic murmur, rubs, gallop - GI/Abdominal GI/Abdominal exam: Present: soft, normal bowel sounds. Absent: distended, tenderness, guarding, rebound, rigid - Extremities Exam Extremities exam: Present: normal inspection - Back Exam Back exam: Present: normal inspection - Neurological Exam Neurological exam: Present: alert, oriented X3, CN II-XII intact. Absent: motor sensory deficit - Psychiatric Psychiatric exam: Present: normal mood, flat affect - Skin Skin exam: Present: warm, dry, intact, normal color. Absent: rash ED Course Vital Signs 03/20/18 03/21/18 03/21/18 23:54 06:47 07:00 Temperature 97.5 F L Pulse Rate 108 H Respiratory 18 Rate Blood Pressure 158/101 141/104 Blood Pressure [Right] O2 Sat by Pulse 99 96 99 Oximetry 03/21/18 03/21/18 07:16 07:18 Temperature 97.5 F L Pulse Rate 93 H Respiratory 16 Rate Blood Pressure 141/104 Blood Pressure 150/100 [Right] O2 Sat by Pulse 99 95 Oximetry - Reevaluation(s) Reevaluation #1: Patient with inadequate anticoagulation and hypertension. Recurrent abdominal pain. I don't see an indication for repeat imaging at this time based on her examination. Hospitalist staff may feel differently. She is admitted for anticoagulation and management of hypertension and further workup at their discretion in stable condition. 03/21/18 07:48 03/21/18 07:49 Chest x-ray does seem to show early CHF/venous congestion. She will be given some Lasix. Case discussed with Dr. Vinnie Michel. I will leave the method of anticoagulation up to the hospitalist staff. 03/21/18 07:53 03/21/18 07:56 ED Medical Decision Making - Lab Data Result diagrams: 03/21/18 05:05 03/21/18 05:05 Laboratory Results - last 24 hr 03/21/18 03/21/18 03/21/18 05:05 05:05 05:05 WBC 8.2 RBC 4.39 Hgb 11.6 Hct 35.9 MCV 82 MCH 26 L MCHC 32 RDW 18.9 H Plt Count 432 Lymph % (Auto) 25.3 [place] % (Auto) 5.1 Eos % (Auto) 1.8 Baso % (Auto) 0.4 Lymph # 2.1 [place] # 0.4 Eos # 0.2 Baso # 0.0 Seg Neutrophils % 67.4 Seg Neutrophils # 5.5 PT INR APTT Sodium 137 Potassium 3.5 L Chloride 97.9 L Carbon Dioxide 24 Anion Gap 19 BUN 10 Creatinine 0.9 Estimated GFR > 60 BUN/Creatinine Ratio 11 Glucose 115 H Calcium 9.4 Total Bilirubin 2.50 H AST 31 ALT 19 Alkaline Phosphatase 66 NT-Pro-B Natriuret Pep 07665 H Total Protein 7.3 Albumin 4.2 Albumin/Globulin Ratio 1.4 Lipase 19 HCG, Qual Negative 03/21/18 05:05 WBC RBC Hgb Hct MCV MCH MCHC RDW Plt Count Lymph % (Auto) [place] % (Auto) Eos % (Auto) Baso % (Auto) Lymph # [place] # Eos # Baso # Seg Neutrophils % Seg Neutrophils # PT 16.2 H INR 1.23 H APTT 27.5 Sodium Potassium Chloride Carbon Dioxide Anion Gap BUN Creatinine Estimated GFR BUN/Creatinine Ratio Glucose Calcium Total Bilirubin AST ALT Alkaline Phosphatase NT-Pro-B Natriuret Pep Total Protein Albumin Albumin/Globulin Ratio Lipase HCG, Qual - EKG Data -: EKG Interpreted by [place] EKG shows normal: sinus rhythm Rate: normal - EKG Data Interpretation: nonspecific ST-T wave ronal, other (biatrial abnormality nonspecific ST-T wave changes Q's noted in the inferior leads) - Radiology Data Radiology results: pending (chest x-ray with cardiomegaly and early CHF) Critical care attestation.: If time is entered above; I have spent that time in minutes in the direct care of this critically ill patient, excluding procedure time. ED Disposition Clinical Impression: Inadequate anticoagulation, Mitral valve replaced, H/O mitral valve replacement with mechanical valve, History of cocaine abuse CHF exacerbation Qualifiers: Heart failure type: unspecified Qualified Code(s): I50.9 - Heart failure, unspecified Cardiomyopathy Qualifiers: Cardiomyopathy type: unspecified Qualified Code(s): I42.9 - Cardiomyopathy, unspecified Disposition: DC-09 OP ADMIT IP TO THIS HOSP Is pt being admited?: Yes Does the pt Need Aspirin: No Condition: Stable Referrals: PRIMARY CARE, [Primary Care Provider] - 3-5 Days Time of Disposition: 07:56
--- NOTE | 2018-03-21 07:50 | XRay Report ---
FINAL REPORT EXAM: XR CHEST 1V AP HISTORY: hypertension TECHNIQUE: AP portable view(s) of the chest obtained. PRIORS: 02/23/2018 FINDINGS: No mediastinal shift. Cardiomegaly. Cardiac device and overlying sternotomy wires. No pneumothorax, definite effusion or focal airspace disease. IMPRESSION: No acute pulmonary finding identified.
[2018-03-21] MEDS ORDERED: LASIX IV ONE (07:54)
[2018-03-21] MEDS ORDERED: K-DUR PO ONE ×3 (07:54→10:26)
[2018-03-21 08:43] LABS: Creatine Kinase MB 3.4 ng/mL (0.0-4.0)
--- NOTE | 2018-03-21 09:32 | History and Physical Report ---
History of Present Illness Date of examination: 03/21/18 Date of admission: 03/21/18 Chief complaint: abdominal pain, N/V History of present illness: This is a 47-year-old female with CHF, mechanical mitral valve on coumadin, HTN , HLD presented with abdominal pain, N/V and unable to tolerate po meds for last 3-4 days. She also complains of chronic shortness of breath but is lying prone or supine with no increased work of breathing. She does not complain of chest pain. Her abdominal pain located at right upper quadrant pain. Patient had an extensive workup last month for similar symptoms. She had a hepatobiliary study and ultrasound of the gallbladder and a CT abdomen which were essentially nondiagnostic. She was given zofran in the ER and reported to have no further vomiting episode since she got here. Her INR noted subtherapeutic, she is getting admitted for further evaluation and management. Past medical History: h/o heart failure, hypertension, hyperlipidemia Cath in 09/2012 revealed normal coronaries. Stress MPI done 08/16/2016 was negative for ischemia, EF 43%. Echo done 12/2017 showed LA severely dilated, RA mod dilated, mechanical MV, severe TR, mild to mod AR, LV mod dilated, EF 20-25%, mod pulm HTN with RVSP 58mmHg. Past surgical History: s/p AICD; mechanical MV Social History: Lives with family, denies any smoking, drinking and elicit drug abuse. Family History: Significant for HTN Review of System: Constitutional: no fever, no chills, no weight loss Ears, eyes, nose, mouth and throat: no nasal congestion, no nasal discharge, no sinus pressure, no vision change, no red eye. Neck: No neck pain or rigidity. Cardiovascular: No chest pain, no orthopnea, no palpitations, no leg swelling Respiratory: No shortness of breath, no cough, no congestion, no wheezing Gastrointestinal: + abdominal pain, + nausea, + vomiting Genitourinary : no dysuria, no hematuria Musculoskeletal: no joint swelling or muscle ache Integumentary: no rash, no pruritis Neurological: no parathesias, no numbness, no tingling Endocrine: no cold or heat intolerance, no polyuria or polydipsia Hematologic/Lymphatic: no easy bruising, no easy bleeding, no gland swelling Allergic/Immunologic: no urticaria, no angioedema. Medications and Allergies Allergies Allergy/AdvReac Type Severity Reaction Status Date / Time Srkmhac-Jcc-Nbd Reductase Allergy Unknown Verified 05/14/16 12:53 Inhibitor Home Medications Medication Instructions Recorded Confirmed Last Taken Type Losartan [Cozaar] 25 mg PO QDAY #30 tablet 01/08/17 02/23/18 Unknown Rx Spironolactone [Aldactone] 25 mg PO QDAY #30 tablet 01/08/17 02/23/18 Unknown Rx Carvedilol [Coreg] 25 mg PO BID 02/23/18 02/23/18 Unknown History Furosemide [Lasix TAB] 40 mg PO BID 02/23/18 02/23/18 Unknown History Warfarin [Coumadin] 10 mg PO QDAY 02/23/18 02/23/18 Unknown History HYDROcodone/ACETAMINOPHEN [[place] 1 each PO Q6H #12 tablet 02/27/18 Unknown Rx 5-325 Tablet] Pantoprazole [Protonix] 40 mg PO QDAY #30 tablet 02/27/18 Unknown Rx Active Meds: Active Medications Enoxaparin Sodium (Lovenox) 80 mg 1 mg/kg (80 mg) SUB-Q Q12HR FELICE Exam - Physical Exam Narrative exam: GENERAL: well-developed and well-nourished AAF lying on bed appeared to be in no discomfort. HEENT: Normocephalic. Atraumatic. No conjunctival congestion or icterus. Patient has moist mucous membranes. NECK: Supple. Trachea midline. CHEST/LUNGS: Clear to auscultated bilaterally, breathing nonlabored. No wheezes crackles or rhonchi. HEART/CARDIOVASCULAR: Regular in rate and rhythm. S1 and S2 positive. ABDOMEN: Abdomen is soft, mild RUQ tenderness. Patient has normal bowel sounds. SKIN: There is no rash. Warm and dry. NEURO: No focal motor deficit. Follows command. MUSCULOSKELETAL: No joint effusion or tenderness. EXTRIMITY: No edema, no cyanosis or clubbing. PSYCH: Cooperative. - Constitutional Vitals: Temp Pulse Resp BP Pulse Ox 97.5 F L 93 H 16 137/87 90 03/21/18 07:18 03/21/18 07:18 03/21/18 07:18 03/21/18 08:30 03/21/18 08:30 Results - Labs CBC & Chem 7: 03/21/18 05:05 03/21/18 05:05 Labs: Abnormal lab results 03/21/18 03/21/18 03/21/18 Range/Units 05:05 05:05 05:05 MCH 26 L (28-32) pg RDW 18.9 H (13.2-15.2) % PT 16.2 H (12.2-14.9) Sec. INR 1.23 H (0.87-1.13) Potassium 3.5 L (3.6-5.0) mmol/L Chloride 97.9 L (98-107) mmol/L Glucose 115 H (65-100) mg/dL Total Bilirubin 2.50 H (0.1-1.2) mg/dL Total Creatine Kinase (30-135) units/L NT-Pro-B Natriuret Pep 13410 H (0-450) pg/mL 03/21/18 Range/Units 07:59 MCH (28-32) pg RDW (13.2-15.2) % PT (12.2-14.9) Sec. INR (0.87-1.13) Potassium (3.6-5.0) mmol/L Chloride (98-107) mmol/L Glucose (65-100) mg/dL Total Bilirubin (0.1-1.2) mg/dL Total Creatine Kinase 226 H (30-135) units/L NT-Pro-B Natriuret Pep (0-450) pg/mL Assessment and Plan Abdominal pain / nausea and vomiting - had extensive work up during prior admission with GI consult - will provide supportive care, PPI - monitor LFT, if symptom does not improve with supportive care and mdfélix Mx will consult GI Non-ischemic CMP with AICD in situ, Ef 20-25% - cont home meds H/O mechanical MV replacement - INR goal 2.5 - 3.5 - bridge with lovenox, resume coumadin Subtherapeutic INR - likely from noncompliance - resume anticoagulation Hypokalemia, will replace HTN, stable now HLP, cont statin DVT Px on lovenox/coumadin
[2018-03-21] MEDS ORDERED: COUMADIN PO SCH (10:00)
[2018-03-21] MEDS ORDERED: LOVENOX SUB-Q SCH (10:00)
[2018-03-21] MEDS ORDERED: COREG PO SCH ×2 (10:00)
[2018-03-21] MEDS ORDERED: NORCO 5/325 ONE (10:23)
[2018-03-21] MEDS ORDERED: LASIX ONE (10:25)
[2018-03-21] MEDS ORDERED: PROTONIX PO ONE (10:25)
[2018-03-21] MEDS ORDERED: LOVENOX SUB-Q ONE (10:25)
[2018-03-21] MEDS ORDERED: COREG ONE (10:25)
[2018-03-21] MEDS: PROTONIX PO SCH (10:29)
[2018-03-21] MEDS: LOVENOX SUB-Q SCH ×2 (10:29→22:01)
[2018-03-21] MEDS: COZAAR PO SCH (10:30)
[2018-03-21] MEDS: LASIX PO SCH ×2 (10:30→22:01)
[2018-03-21] MEDS: NORCO 5/325 PO SCH ×3 (10:30→22:05)
--- NOTE | 2018-03-21 13:32 | Consultation ---
History of Present Illness Consult date: 03/21/18 Requesting physician: WINTER ALLEN Consult reason: other (mvr) History of present illness: This is a 47-year-old female with cardiomyopathy with normal coronaries has a mechanical mitral valve has an AICD has 25% history of drug abuse was in the hospital last month and was discharged patient for last 4 days been having nausea and vomiting unable to keep medications down presents back to the hospital denies any abdominal pain no guarding and has been slowly gaining fluid intake back. Patient denies any shortness of breath PND orthopnea chest pain palpitations Past medical History: h/o heart failure, hypertension, hyperlipidemia Cath in 09/2012 revealed normal coronaries. Stress MPI done 08/16/2016 was negative for ischemia, EF 43%. Echo done 12/2017 showed LA severely dilated, RA mod dilated, mechanical MV, severe TR, mild to mod AR, LV mod dilated, EF 20-25%, mod pulm HTN with RVSP 58mmHg. Past History Past Medical History: heart failure ( cardiomyopathy), hypertension Past Surgical History: Other (mechanical mitral valve and AICD) Social history: other (drug abuse cocaine and marijuana patient states has not taken's since discharge) Family history: denies: no significant family history Medications and Allergies Allergies Allergy/AdvReac Type Severity Reaction Status Date / Time Evwifuu-Nfd-Lfq Reductase Allergy Unknown Verified 05/14/16 12:53 Inhibitor Home Medications Medication Instructions Recorded Confirmed Last Taken Type Losartan [Cozaar] 25 mg PO QDAY #30 tablet 01/08/17 02/23/18 Unknown Rx Spironolactone [Aldactone] 25 mg PO QDAY #30 tablet 01/08/17 02/23/18 Unknown Rx Carvedilol [Coreg] 25 mg PO BID 02/23/18 02/23/18 Unknown History Furosemide [Lasix TAB] 40 mg PO BID 02/23/18 02/23/18 Unknown History Warfarin [Coumadin] 10 mg PO QDAY 02/23/18 02/23/18 Unknown History HYDROcodone/ACETAMINOPHEN [[place] 1 each PO Q6H #12 tablet 02/27/18 Unknown Rx 5-325 Tablet] Pantoprazole [Protonix] 40 mg PO QDAY #30 tablet 02/27/18 Unknown Rx Active Meds: Active Medications Acetaminophen/Hydrocodone Bitart ([place] 5/325) 1 each PO Q6H [facility] Last Admin: 03/21/18 10:30 Dose: 1 each Carvedilol (Coreg) 3.125 mg PO BID [facility] Last Admin: 03/21/18 10:30 Dose: 3.125 mg Enoxaparin Sodium (Lovenox) 80 mg SUB-Q Q12HR [facility] Last Admin: 03/21/18 10:29 Dose: 80 mg Furosemide (Lasix) 40 mg PO BID [facility] Last Admin: 03/21/18 10:30 Dose: 40 mg Losartan Potassium (Cozaar) 25 mg PO QDAY [facility] Last Admin: 03/21/18 10:30 Dose: 25 mg Pantoprazole Sodium (Protonix) 40 mg PO QDAY [facility] Last Admin: 03/21/18 10:29 Dose: 40 mg Pneumococcal Polyvalent Vaccine (Pneumovax 23) 0.5 ml IM .ONCE ONE Stop: 03/22/18 12:01 Warfarin Sodium (Coumadin) 10 mg PO DAILY@1700 [facility] Review of Systems All systems: negative (as per hpi) Physical Examination Vital Signs Temp Pulse Resp BP Pulse Ox 97.5 F L 108 H 18 158/101 99 03/20/18 23:54 03/20/18 23:54 03/20/18 23:54 03/20/18 23:54 03/20/18 23:54 General appearance: no acute distress HEENT: Positive: PERRL, EOMI Neck: Positive: trachea midline Cardiac: Positive: Reg Rate and Rhythm, Audible Murmur (click) Lungs: Positive: clear to auscultation Neuro: Positive: Grossly Intact Abdomen: Positive: Soft Extremities: Present: normal. Absent: edema Results 03/21/18 05:05 03/21/18 05:05 Cardiac Enzymes 03/21/18 03/21/18 Range/Units 05:05 07:59 AST 31 (5-40) units/L CK-MB (CK-2) 3.4 (0.0-4.0) ng/mL Coagulation 03/21/18 Range/Units 05:05 PT 16.2 H (12.2-14.9) Sec. INR 1.23 H (0.87-1.13) APTT 27.5 (24.2-36.6) Sec. CBC 03/21/18 Range/Units 05:05 WBC 8.2 (4.5-11.0) K/mm3 RBC 4.39 (3.65-5.03) M/mm3 Hgb 11.6 (10.1-14.3) gm/dl Hct 35.9 (30.3-42.9) % Plt Count 432 (140-440) K/mm3 Lymph # 2.1 (1.2-5.4) K/mm3 [place] # 0.4 (0.0-0.8) K/mm3 Eos # 0.2 (0.0-0.4) K/mm3 Baso # 0.0 (0.0-0.1) K/mm3 Comprehensive Metabolic Panel 03/21/18 Range/Units 05:05 Sodium 137 (137-145) mmol/L Potassium 3.5 L (3.6-5.0) mmol/L Chloride 97.9 L (98-107) mmol/L Carbon Dioxide 24 (22-30) mmol/L BUN 10 (7-17) mg/dL Creatinine 0.9 (0.7-1.2) mg/dL Glucose 115 H (65-100) mg/dL Calcium 9.4 (8.4-10.2) mg/dL AST 31 (5-40) units/L ALT 19 (7-56) units/L Alkaline Phosphatase 66 (35-129) units/L Total Protein 7.3 (6.3-8.2) g/dL Albumin 4.2 (3.9-5) g/dL - Imaging and Cardiology Stress echo: other (Stress MPI done 08/16/2016 was negative for ischemia, EF 43% . ) Echo: report reviewed (Echo done 12/2017 showed LA severely dilated, RA mod dilated, mechanical MV, severe TR, mild to mod AR, LV mod dilated, EF 20-25%, mod pulm HTN with RVSP 58mmHg. ) Cardiac cath: report reviewed (Cath in 09/2012 revealed normal coronaries.) - EKG Interpretation EKG: interpreted by ERMD Assessment and Plan Abdominal pain nausea vomiting Compensated systolic heart failure Subtherapeutic INR for mechanical mitral valve History of drug abuse rec: Continue Coreg losartan Lasix Aldactone and Coumadin patient had recent AICD interrogation on last admission and is functioning properly and patient has chronically elevated BNP
[2018-03-21] MEDS: COREG PO SCH ×3 (17:03→22:01)
[2018-03-21] MEDS: ALDACTONE PO SCH (17:04)
[2018-03-21] MEDS: COUMADIN PO SCH (17:04)
[2018-03-22] MEDS: NORCO 5/325 PO SCH ×4 (04:19→21:49)
[2018-03-22 08:53] LABS: Calcium 9.1 mg/dL (8.4-10.2)
[2018-03-22 09:03] LABS: INR 1.35 (0.87-1.13)
[2018-03-22] MEDS: LOVENOX SUB-Q SCH ×2 (11:06→21:47)
[2018-03-22] MEDS: COREG PO SCH ×2 (11:06→21:48)
[2018-03-22] MEDS: PROTONIX PO SCH (11:06)
--- NOTE | 2018-03-22 11:10 | Progress Note ---
Assessment and Plan Assessment: Abdominal pain / nausea and vomiting - recent GI w/u Chronic systolic heart failure Dilated non-ischemic CMP - EF 20-25% Subcutaneous AICD in situ H/O mechanical MV replacement - INR goal 2.5 - 3.5 Subtherapeutic INR H/O NSVT HTN HLP H/o CMP Cocaine use / marijuana use - cessation encouraged Plan: Currently stable cardiac status. Cont coumadin with tx INR 2.5-3.5. Pt currently on full dosage lovenox in the interim per primary. The patient has been seen in conjunction with Dr. Ines Dodge who agrees with the assessment and plan of care. Subjective Date of service: 03/22/18 Principal diagnosis: n/v Interval history: pt resting in bed, no current cardiac complaints. still with some n/v. Objective Last Vital Signs Temp 97.5 F L 03/22/18 06:19 Pulse 73 03/22/18 06:19 Resp 20 03/22/18 06:19 BP 93/61 03/22/18 06:19 Pulse Ox 97 03/22/18 06:19 - Physical Examination General: No Apparent Distress HEENT: Positive: PERRL, EOMI Neck: Positive: trachea midline Cardiac: Positive: Reg Rate and Rhythm, S1/S2, Other (valve click) Lungs: Positive: Decreased Breath Sounds Neuro: Positive: Grossly Intact Abdomen: Positive: Soft Extremities: Present: normal. Absent: edema - Labs and Meds Coagulation 03/22/18 Range/Units 07:37 PT 17.5 H (12.2-14.9) Sec. INR 1.35 H (0.87-1.13) Comprehensive Metabolic Panel 03/22/18 Range/Units 07:37 Sodium 137 (137-145) mmol/L Potassium 4.2 (3.6-5.0) mmol/L Chloride 99.1 (98-107) mmol/L Carbon Dioxide 23 (22-30) mmol/L BUN 15 (7-17) mg/dL Creatinine 1.2 (0.7-1.2) mg/dL Glucose 94 (65-100) mg/dL Calcium 9.1 (8.4-10.2) mg/dL - Imaging and Cardiology Stress echo: other (Stress MPI done 08/16/2016 was negative for ischemia, EF 43% . ) Echo: report reviewed (Echo done 12/2017 showed LA severely dilated, RA mod dilated, mechanical MV, severe TR, mild to mod AR, LV mod dilated, EF 20-25%, mod pulm HTN with RVSP 58mmHg. ) Cardiac cath: report reviewed (Cath in 09/2012 revealed normal coronaries.)
[2018-03-22] MEDS ORDERED: PNEUMOVAX 23 IM ONE (12:00)
[2018-03-22] MEDS: ALDACTONE PO SCH (13:16)
[2018-03-22] MEDS: LASIX PO SCH ×2 (13:20→21:48)
--- NOTE | 2018-03-22 15:21 | Progress Note ---
Assessment and Plan Abdominal pain / nausea and vomiting - had extensive work up during prior admission with GI consult - will provide supportive care, PPI - monitor LFT, if symptom does not improve with supportive care and maximino Mx will consult GI Non-ischemic CMP with AICD in situ, Ef 20-25% - cont home meds H/O mechanical MV replacement - INR goal 2.5 - 3.5 - bridge with lovenox, resumed coumadin - monitor INR daily Subtherapeutic INR - likely from noncompliance - resumed anticoagulation Hypokalemia, will replace HTN, stable now HLP, cont statin DVT Px on lovenox/coumadin Brief History: 47-year-old female with CHF, mechanical mitral valve on coumadin, HTN, HLD presented with abdominal pain, N/V and unable to tolerate po meds for last 3-4 days. Patient had an extensive workup last month for similar symptoms. She had a hepatobiliary study and ultrasound of the gallbladder and a CT abdomen which were essentially nondiagnostic. In the ER her INR noted subtherapeutic, she was getting admitted for further evaluation and management. Subjective Date of service: 03/22/18 Principal diagnosis: n/v Interval history: Pt seen and examined states her appetite has improved No abdominal pain, N/V Objective - Exam Narrative Exam: GENERAL: well-developed and well-nourished AAF lying on bed appeared to be in no discomfort. HEENT: Normocephalic. Atraumatic. No conjunctival congestion or icterus. Patient has moist mucous membranes. NECK: Supple. Trachea midline. CHEST/LUNGS: Clear to auscultated bilaterally, breathing nonlabored. No wheezes crackles or rhonchi. HEART/CARDIOVASCULAR: Regular in rate and rhythm. S1 and S2 positive. ABDOMEN: Abdomen is soft, mild RUQ tenderness. Patient has normal bowel sounds. SKIN: There is no rash. Warm and dry. NEURO: No focal motor deficit. Follows command. MUSCULOSKELETAL: No joint effusion or tenderness. EXTRIMITY: No edema, no cyanosis or clubbing. PSYCH: Cooperative. - Constitutional Vitals: Vital Signs - 12hr 03/22/18 03/22/18 03/22/18 06:19 10:59 12:46 Temperature 97.5 F L 97.5 F L Pulse Rate 73 73 Respiratory 20 16 Rate Blood Pressure 119/85 117/89 Blood Pressure 93/61 [Right] O2 Sat by Pulse 97 100 Oximetry - Labs CBC & Chem 7: 03/21/18 05:05 03/22/18 07:37 Labs: Abnormal lab results 03/22/18 Range/Units 07:37 PT 17.5 H (12.2-14.9) Sec. INR 1.35 H (0.87-1.13)
[2018-03-22] MEDS: COUMADIN PO SCH (16:42)
[2018-03-22] MEDS: COZAAR PO SCH (16:42)
[2018-03-22 17:46] LABS: Bacteria,Urine 2+ /HPF (Negative); Bilirubin,Urine NEG (Negative); Blood,Urine NEG (Negative); Color,Urine Yellow (Yellow); Granular Casts,Urine 1 /LPF; Hyaline Casts,Urine 3 /LPF; Mucus,Urine FEW /HPF; Protein,Urine <15 mg/dL mg/dL (Negative)
[2018-03-22 17:54] LABS: Amphetamine Screen,Urine PRESUMPTIVE NEGATIVE; Benzodiazepines Screen,Urine PRESUMPTIVE NEGATIVE; Methadone Screen,Urine PRESUMPTIVE NEGATIVE; Opiate Screen,Urine PRESUMPTIVE NEGATIVE
[2018-03-22 18:07] LABS: Cannabinoid Screen,Urine PRESUMPTIVE POSITIVE; Cocaine Screen,Urine PRESUMPTIVE POSITIVE
[2018-03-23] MEDS: NORCO 5/325 PO SCH ×4 (04:34→23:03)
[2018-03-23 07:03] LABS: Alanine Aminotransferase 20 units/L (7-56); Albumin 3.5 g/dL (3.9-5)
[2018-03-23 07:21] LABS: Bilirubin,Direct < 0.2 mg/dL (0-0.2)
[2018-03-23 07:31] LABS: INR 1.61 (0.87-1.13)
[2018-03-23] MEDS: PROTONIX PO SCH (09:26)
[2018-03-23] MEDS: LASIX PO SCH ×2 (09:26→23:04)
[2018-03-23] MEDS: ALDACTONE PO SCH (09:26)
[2018-03-23] MEDS: COZAAR PO SCH (09:26)
[2018-03-23] MEDS: COREG PO SCH ×2 (09:27→23:04)
[2018-03-23] MEDS: LOVENOX SUB-Q SCH ×2 (09:30→23:33)
--- NOTE | 2018-03-23 10:27 | Progress Note ---
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 Cont coumadin with tx INR 2.5-3.5. Pt currently on full dosage lovenox in the interim per primary. Nothing further to add from cardiac perspective at this time. Will follow on as needed basis. Follow up in our [place] office with Dr. Ram within 1-2 weeks of hospital discharge ([phone]). The patient has been seen in conjunction with Dr. Ines Dodge who agrees with the assessment and plan of care. Subjective Date of service: 03/23/18 Principal diagnosis: n/v Interval history: pt resting in bed, no current cardiac complaints. still with some nausea, no vomiting overnight. tele reviewed - pt currently in SR with some bouts of NSVT overnight. Objective Last Vital Signs Temp 97.4 F L 03/23/18 05:33 Pulse 68 03/23/18 07:00 Resp 24 03/23/18 05:33 BP 113/75 03/23/18 07:00 Pulse Ox 99 03/23/18 05:33 - Physical Examination General: No Apparent Distress HEENT: Positive: PERRL, EOMI Neck: Positive: trachea midline Cardiac: Positive: Reg Rate and Rhythm, S1/S2 Lungs: Positive: clear to auscultation Neuro: Positive: Grossly Intact Abdomen: Positive: Soft Extremities: Present: normal. Absent: edema - Labs and Meds Cardiac Enzymes 03/23/18 Range/Units 05:28 AST 33 (5-40) units/L Coagulation 03/23/18 Range/Units 05:27 PT 20.1 H (12.2-14.9) Sec. INR 1.61 H (0.87-1.13) Comprehensive Metabolic Panel 03/23/18 Range/Units 05:28 Direct Bilirubin < 0.2 (0-0.2) mg/dL Indirect Bilirubin 0.9 mg/dL AST 33 (5-40) units/L ALT 20 (7-56) units/L Alkaline Phosphatase 63 (35-129) units/L Total Protein 6.3 (6.3-8.2) g/dL Albumin 3.5 L (3.9-5) g/dL - Imaging and Cardiology Stress echo: other (Stress MPI done 08/16/2016 was negative for ischemia, EF 43% . ) Echo: report reviewed (Echo done 12/2017 showed LA severely dilated, RA mod dilated, mechanical MV, severe TR, mild to mod AR, LV mod dilated, EF 20-25%, mod pulm HTN with RVSP 58mmHg. ) Cardiac cath: report reviewed (Cath in 09/2012 revealed normal coronaries.) - Telemetry EKG Rhythm: Sinus Rhythm
--- NOTE | 2018-03-23 13:40 | Progress Note ---
Assessment and Plan Assessment and plan: Patient is a 47-year-old who with a histoy of systolic HF, mechanical mitral valve on coumadin, HTN, HLD presented with abdominal pain, N/V and unable to tolerate po meds for last 3-4 days. Patient had an extensive workup last month for similar symptoms. She had a hepatobiliary study and ultrasound of the gallbladder and a CT abdomen which were essentially nondiagnostic. In the ER her INR noted subtherapeutic, she was getting admitted for further evaluation and management. Abdominal pain / nausea and vomiting with GERD/gastritis possibly from chronic marijuana use - had extensive work up during prior admission with GI consult - will provide supportive care, PPI - patent counsel on stopping illegal drug use Non-ischemic CMP with AICD in situ, Ef 20-25% - cont home meds - Cardiology evaluated and signed off H/O mechanical MV replacement - INR goal 2.5 - 3.5 - bridge with lovenox, resumed coumadin - monitor INR daily Subtherapeutic INR - likely from noncompliance, counseling done - resumed anticoagulation Hypokalemia, will replace - bmp am Anemia, suspect chronic disease - check cbc am HTN, stable now HLP, cont statin DVT Px on lovenox/coumadin Urine Drug Screen +cocaine and marijuana - counseling done Elevated LFT, likely from chronic hepatic congestion from CHF as diagnosed during prior admission. Cont to monitor. Disposition: continue inpatient care, d/c once INR is therapeutic History Interval history: Patient was seen and examined. Follow-up on current diagnosis of ap/n/v; the vomiting and abd pains resolved, still have nausea. Overnight uneventful. Patient denies any chest pain, shortness breath, or severe headaches. Imaging, nursing note, chart, labs and old chart reviewed. Discussed with patient. Hospitalist Physical - Physical exam Narrative exam: GEN: WDWN, NAD, Awake, Alert, Orientated x 3 HEENT: NCAT, EOMI, PERRL, OP Clear NECK: supple, no adenopathy, no thyromegaly, no JVD CVS/HEART: RRR, normal S1S2, pulses present bilaterally CHEST/LUNGS: CTA B, Symmetrical chest expansion, good air entry bilaterally GI/Abdomen: soft, NTND, good bowel sounds, no guarding or rebound /Bladder: no suprapubic tenderness, no CVA or paraspinal tenderness EXT/Skin: no c/c/e, no obvious rash MSK: FROM x 4 Neuro: CN 2-12 grossly intact, no new focal deficits Psych: calm - Constitutional Vitals: Temp Pulse Resp BP Pulse Ox 97.4 F L 68 24 113/75 99 03/23/18 05:33 03/23/18 07:00 03/23/18 05:33 03/23/18 07:00 03/23/18 05:33 General appearance: Present: no acute distress Results - Labs CBC & Chem 7: 03/21/18 05:05 03/22/18 07:37 Labs: Laboratory Last Values WBC 8.2 K/mm3 (4.5-11.0) 03/21/18 05:05 RBC 4.39 M/mm3 (3.65-5.03) 03/21/18 05:05 Hgb 11.6 gm/dl (10.1-14.3) 03/21/18 05:05 Hct 35.9 % (30.3-42.9) 03/21/18 05:05 MCV 82 fl (79-97) 03/21/18 05:05 MCH 26 pg (28-32) L 03/21/18 05:05 MCHC 32 % (30-34) 03/21/18 05:05 RDW 18.9 % (13.2-15.2) H 03/21/18 05:05 Plt Count 432 K/mm3 (140-440) 03/21/18 05:05 Lymph % (Auto) 25.3 % (13.4-35.0) 03/21/18 05:05 [place] % (Auto) 5.1 % (0.0-7.3) 03/21/18 05:05 Eos % (Auto) 1.8 % (0.0-4.3) 03/21/18 05:05 Baso % (Auto) 0.4 % (0.0-1.8) 03/21/18 05:05 Lymph # 2.1 K/mm3 (1.2-5.4) 03/21/18 05:05 [place] # 0.4 K/mm3 (0.0-0.8) 03/21/18 05:05 Eos # 0.2 K/mm3 (0.0-0.4) 03/21/18 05:05 Baso # 0.0 K/mm3 (0.0-0.1) 03/21/18 05:05 Seg Neutrophils % 67.4 % (40.0-70.0) 03/21/18 05:05 Seg Neutrophils # 5.5 K/mm3 (1.8-7.7) 03/21/18 05:05 PT 20.1 Sec. (12.2-14.9) H 03/23/18 05:27 INR 1.61 (0.87-1.13) H 03/23/18 05:27 APTT 27.5 Sec. (24.2-36.6) 03/21/18 05:05 Sodium 137 mmol/L (137-145) 03/22/18 07:37 Potassium 4.2 mmol/L (3.6-5.0) 03/22/18 07:37 Chloride 99.1 mmol/L (98-107) 03/22/18 07:37 Carbon Dioxide 23 mmol/L (22-30) 03/22/18 07:37 Anion Gap 19 mmol/L 03/22/18 07:37 BUN 15 mg/dL (7-17) 03/22/18 07:37 Creatinine 1.2 mg/dL (0.7-1.2) 03/22/18 07:37 Estimated GFR 58 ml/min 03/22/18 07:37 BUN/Creatinine Ratio 13 % 03/22/18 07:37 Glucose 94 mg/dL (65-100) 03/22/18 07:37 Calcium 9.1 mg/dL (8.4-10.2) 03/22/18 07:37 Magnesium 2.00 mg/dL (1.7-2.3) 03/23/18 06:09 Total Bilirubin 1.10 mg/dL (0.1-1.2) 03/23/18 05:28 Direct Bilirubin < 0.2 mg/dL (0-0.2) 03/23/18 05:28 Indirect Bilirubin 0.9 mg/dL 03/23/18 05:28 AST 33 units/L (5-40) 03/23/18 05:28 ALT 20 units/L (7-56) 03/23/18 05:28 Alkaline Phosphatase 63 units/L (35-129) 03/23/18 05:28 Total Creatine Kinase 226 units/L (30-135) H 03/21/18 07:59 CK-MB (CK-2) 3.4 ng/mL (0.0-4.0) 03/21/18 07:59 CK-MB (CK-2) Rel Index 1.5 (0-4) 03/21/18 07:59 NT-Pro-B Natriuret Pep 02259 pg/mL (0-450) H 03/21/18 05:05 Total Protein 6.3 g/dL (6.3-8.2) 03/23/18 05:28 Albumin 3.5 g/dL (3.9-5) L 03/23/18 05:28 Albumin/Globulin Ratio 1.3 % 03/23/18 05:28 Lipase 19 units/L (13-60) 03/21/18 05:05 HCG, Qual Negative (Negative) 03/21/18 05:05 Urine Color Yellow (Yellow) 03/22/18 16:40 Urine Turbidity Clear (Clear) 03/22/18 16:40 Urine pH 6.0 (5.0-7.0) 03/22/18 16:40 Ur Specific [place] 1.010 (1.003-1.030) 03/22/18 16:40 Urine Protein <15 mg/dl mg/dL (Negative) 03/22/18 16:40 Urine Glucose (UA) Neg mg/dL (Negative) 03/22/18 16:40 Urine Ketones Neg mg/dL (Negative) 03/22/18 16:40 Urine Blood Neg (Negative) 03/22/18 16:40 Urine Nitrite Pos (Negative) 03/22/18 16:40 Urine Bilirubin Neg (Negative) 03/22/18 16:40 Urine Urobilinogen 4.0 mg/dL (<2.0) 03/22/18 16:40 Ur Leukocyte Esterase Neg (Negative) 03/22/18 16:40 Urine WBC (Auto) 1.0 /HPF (0.0-6.0) 03/22/18 16:40 Urine RBC (Auto) 4.0 /HPF (0.0-6.0) 03/22/18 16:40 U Epithel Cells (Auto) 5.0 /HPF (0-13.0) 03/22/18 16:40 Urine Bacteria (Auto) 2+ /HPF (Negative) 03/22/18 16:40 Hyaline Casts 3 /LPF 03/22/18 16:40 Granular Casts 1 /LPF 03/22/18 16:40 Urine Mucus Few /HPF 03/22/18 16:40 Urine Opiates Screen Presumptive negative 03/22/18 16:40 Urine Methadone Screen Presumptive negative 03/22/18 16:40 Ur Barbiturates Screen Presumptive negative 03/22/18 16:40 Ur Phencyclidine Scrn Presumptive negative 03/22/18 16:40 Ur Amphetamines Screen Presumptive negative 03/22/18 16:40 U Benzodiazepines Scrn Presumptive negative 03/22/18 16:40 Urine Cocaine Screen Presumptive positive 03/22/18 16:40 U Marijuana (THC) Screen Presumptive positive 03/22/18 16:40 Drugs of Abuse Note Disclamer 03/22/18 16:40
[2018-03-23] MEDS: COUMADIN PO SCH (17:39)
[2018-03-23 19:34] LABS: BUN/Creatinine Ratio 15; Blood Urea Nitrogen 16 mg/dL (7-17); Hemolysis Index 7
[2018-03-24] MEDS: NORCO 5/325 PO SCH ×2 (04:22→12:10)
[2018-03-24 06:25] LABS: Hematocrit 36.4 % (30.3-42.9); Hemoglobin 11.5 gm/dl (10.1-14.3); Mean Corpuscular HGB Conc 32 % (30-34); Mean Corpuscular Volume 81 fl (79-97); Platelet Count 427 K/mm3 (140-440); Red Cell Distribution Width 18.9 % (13.2-15.2)
[2018-03-24 06:33] LABS: Mean Corpuscular Hemoglobin 26 pg (28-32)
[2018-03-24 06:38] LABS: INR 1.79 (0.87-1.13)
[2018-03-24] MEDS: LOVENOX SUB-Q SCH ×2 (10:17→22:41)
[2018-03-24] MEDS: ALDACTONE PO SCH (10:17)
[2018-03-24] MEDS: COZAAR PO SCH (10:17)
[2018-03-24] MEDS: COREG PO SCH ×2 (10:17→22:43)
[2018-03-24] MEDS: LASIX PO SCH ×2 (10:17→22:41)
[2018-03-24] MEDS: PROTONIX PO SCH (10:17)
--- NOTE | 2018-03-24 14:42 | Progress Note ---
Assessment and Plan Assessment and plan: Patient is a 47-year-old who with a histoy of systolic HF, mechanical mitral valve on coumadin, HTN, HLD presented with abdominal pain, N/V and unable to tolerate po meds for last 3-4 days. Patient had an extensive workup last month for similar symptoms. She had a hepatobiliary study and ultrasound of the gallbladder and a CT abdomen which were essentially nondiagnostic. In the ER her INR noted subtherapeutic, she was getting admitted for further evaluation and management. Abdominal pain / nausea and vomiting with GERD/gastritis possibly from chronic marijuana use - had extensive work up during prior admission with GI consult - will provide supportive care, PPI - cancer genetic counselor on stopping illegal drug use Non-ischemic CMP with AICD in situ, Ef 20-25% - cont home meds - Cardiology evaluated and signed off H/O mechanical MV replacement - INR goal 2.5 - 3.5 - bridge with lovenox, resumed coumadin - monitor INR daily Subtherapeutic INR - likely from noncompliance, counseling done - resumed anticoagulation Hypokalemia, will replace - bmp am Anemia, suspect chronic disease - check cbc am HTN, stable now HLP, cont statin DVT Px on lovenox/coumadin Urine Drug Screen +cocaine and marijuana - counseling done Elevated LFT, likely from chronic hepatic congestion from CHF as diagnosed during prior admission. Cont to monitor. Disposition: continue inpatient care, d/c once INR is therapeutic History Interval history: Patient was seen and examined. Follow-up on current diagnosis of ap/n/v; the vomiting and abd pains resolved, still have nausea. Overnight uneventful. Patient denies any chest pain, shortness breath, or severe headaches. Imaging, nursing note, chart, labs and old chart reviewed. Discussed with patient. Hospitalist Physical - Physical exam Narrative exam: GEN: WDWN, NAD, Awake, Alert, Orientated x 3 HEENT: NCAT, EOMI, PERRL, OP Clear NECK: supple, no adenopathy, no thyromegaly, no JVD CVS/HEART: RRR, normal S1S2, pulses present bilaterally CHEST/LUNGS: CTA B, Symmetrical chest expansion, good air entry bilaterally GI/Abdomen: soft, NTND, good bowel sounds, no guarding or rebound /Bladder: no suprapubic tenderness, no CVA or paraspinal tenderness EXT/Skin: no c/c/e, no obvious rash MSK: FROM x 4 Neuro: CN 2-12 grossly intact, no new focal deficits Psych: calm - Constitutional Vitals: Temp Pulse Resp BP Pulse Ox 97.4 F L 70 16 112/76 97 03/24/18 11:49 03/24/18 11:49 03/24/18 11:49 03/24/18 11:49 03/24/18 11:49 General appearance: Present: no acute distress Results - Labs CBC & Chem 7: 03/24/18 04:52 03/24/18 04:52 Labs: Laboratory Last Values WBC 6.5 K/mm3 (4.5-11.0) 03/24/18 04:52 RBC 4.50 M/mm3 (3.65-5.03) 03/24/18 04:52 Hgb 11.5 gm/dl (10.1-14.3) 03/24/18 04:52 Hct 36.4 % (30.3-42.9) 03/24/18 04:52 MCV 81 fl (79-97) 03/24/18 04:52 MCH 26 pg (28-32) L 03/24/18 04:52 MCHC 32 % (30-34) 03/24/18 04:52 RDW 18.9 % (13.2-15.2) H 03/24/18 04:52 Plt Count 427 K/mm3 (140-440) 03/24/18 04:52 Lymph % (Auto) 25.3 % (13.4-35.0) 03/21/18 05:05 [place] % (Auto) 5.1 % (0.0-7.3) 03/21/18 05:05 Eos % (Auto) 1.8 % (0.0-4.3) 03/21/18 05:05 Baso % (Auto) 0.4 % (0.0-1.8) 03/21/18 05:05 Lymph # 2.1 K/mm3 (1.2-5.4) 03/21/18 05:05 [place] # 0.4 K/mm3 (0.0-0.8) 03/21/18 05:05 Eos # 0.2 K/mm3 (0.0-0.4) 03/21/18 05:05 Baso # 0.0 K/mm3 (0.0-0.1) 03/21/18 05:05 Seg Neutrophils % 67.4 % (40.0-70.0) 03/21/18 05:05 Seg Neutrophils # 5.5 K/mm3 (1.8-7.7) 03/21/18 05:05 PT 21.9 Sec. (12.2-14.9) H 03/24/18 04:52 INR 1.79 (0.87-1.13) H 03/24/18 04:52 APTT 27.5 Sec. (24.2-36.6) 03/21/18 05:05 Sodium 137 mmol/L (137-145) 03/24/18 04:52 Potassium 4.3 mmol/L (3.6-5.0) 03/24/18 04:52 Chloride 94.4 mmol/L (98-107) L 03/24/18 04:52 Carbon Dioxide 26 mmol/L (22-30) 03/24/18 04:52 Anion Gap 21 mmol/L 03/24/18 04:52 BUN 17 mg/dL (7-17) 03/24/18 04:52 Creatinine 1.2 mg/dL (0.7-1.2) 03/24/18 04:52 Estimated GFR 58 ml/min 03/24/18 04:52 BUN/Creatinine Ratio 14 % 03/24/18 04:52 Glucose 87 mg/dL (65-100) 03/24/18 04:52 Calcium 9.0 mg/dL (8.4-10.2) 03/24/18 04:52 Magnesium 2.00 mg/dL (1.7-2.3) 03/23/18 06:09 Total Bilirubin 1.10 mg/dL (0.1-1.2) 03/23/18 05:28 Direct Bilirubin < 0.2 mg/dL (0-0.2) 03/23/18 05:28 Indirect Bilirubin 0.9 mg/dL 03/23/18 05:28 AST 33 units/L (5-40) 03/23/18 05:28 ALT 20 units/L (7-56) 03/23/18 05:28 Alkaline Phosphatase 63 units/L (35-129) 03/23/18 05:28 Total Creatine Kinase 226 units/L (30-135) H 03/21/18 07:59 CK-MB (CK-2) 3.4 ng/mL (0.0-4.0) 03/21/18 07:59 CK-MB (CK-2) Rel Index 1.5 (0-4) 03/21/18 07:59 NT-Pro-B Natriuret Pep 36147 pg/mL (0-450) H 03/21/18 05:05 Total Protein 6.3 g/dL (6.3-8.2) 03/23/18 05:28 Albumin 3.5 g/dL (3.9-5) L 03/23/18 05:28 Albumin/Globulin Ratio 1.3 % 03/23/18 05:28 Lipase 19 units/L (13-60) 03/21/18 05:05 HCG, Qual Negative (Negative) 03/21/18 05:05 Urine Color Yellow (Yellow) 03/22/18 16:40 Urine Turbidity Clear (Clear) 03/22/18 16:40 Urine pH 6.0 (5.0-7.0) 03/22/18 16:40 Ur Specific [place] 1.010 (1.003-1.030) 03/22/18 16:40 Urine Protein <15 mg/dl mg/dL (Negative) 03/22/18 16:40 Urine Glucose (UA) Neg mg/dL (Negative) 03/22/18 16:40 Urine Ketones Neg mg/dL (Negative) 03/22/18 16:40 Urine Blood Neg (Negative) 03/22/18 16:40 Urine Nitrite Pos (Negative) 03/22/18 16:40 Urine Bilirubin Neg (Negative) 03/22/18 16:40 Urine Urobilinogen 4.0 mg/dL (<2.0) 03/22/18 16:40 Ur Leukocyte Esterase Neg (Negative) 03/22/18 16:40 Urine WBC (Auto) 1.0 /HPF (0.0-6.0) 03/22/18 16:40 Urine RBC (Auto) 4.0 /HPF (0.0-6.0) 03/22/18 16:40 U Epithel Cells (Auto) 5.0 /HPF (0-13.0) 07/16/18 16:40 Urine Bacteria (Auto) 2+ /HPF (Negative) 03/22/18 16:40 Hyaline Casts 3 /LPF 03/22/18 16:40 Granular Casts 1 /LPF 03/22/18 16:40 Urine Mucus Few /HPF 03/22/18 16:40 Urine Opiates Screen Presumptive negative 03/22/18 16:40 Urine Methadone Screen Presumptive negative 03/22/18 16:40 Ur Barbiturates Screen Presumptive negative 03/22/18 16:40 Ur Phencyclidine Scrn Presumptive negative 03/22/18 16:40 Ur Amphetamines Screen Presumptive negative 03/22/18 16:40 U Benzodiazepines Scrn Presumptive negative 03/22/18 16:40 Urine Cocaine Screen Presumptive positive 03/22/18 16:40 U Marijuana (THC) Screen Presumptive positive 03/22/18 16:40 Drugs of Abuse Note Disclamer 03/22/18 16:40
[2018-03-24] MEDS: NORCO 5/325 PO PRN ×2 (14:53→22:42)
[2018-03-24] MEDS: COUMADIN PO SCH (18:12)
[2018-03-25 07:01] LABS: INR 2.02 (0.87-1.13)
[2018-03-25] MEDS: COZAAR PO SCH (11:19)
[2018-03-25] MEDS: COREG PO SCH ×2 (11:19→22:32)
[2018-03-25] MEDS: LOVENOX SUB-Q SCH ×2 (11:21→22:29)
[2018-03-25] MEDS: PROTONIX PO SCH (11:22)
[2018-03-25] MEDS: ALDACTONE PO SCH (11:23)
[2018-03-25] MEDS: LASIX PO SCH ×2 (11:23→22:30)
[2018-03-25] MEDS: NORCO 5/325 PO PRN ×2 (11:26→18:53)
--- NOTE | 2018-03-25 14:08 | Progress Note ---
Assessment and Plan Assessment and plan: Patient is a 47-year-old who with a histoy of systolic HF, mechanical mitral valve on coumadin, NSVT with AICD in place, HTN, HLD presented with abdominal pain, N/V and unable to tolerate po meds for last 3-4 days. Patient had an extensive workup last month for similar symptoms. She had a HIDA scan, ultrasound of the gallbladder and a CT abdomen which were essentially nondiagnostic. In the ER her INR noted subtherapeutic, she was getting admitted for further evaluation and management. Abdominal pain / nausea and vomiting with GERD/gastritis possibly from chronic marijuana use - had extensive work up during prior admission with GI consult - will provide supportive care, PPI - certified alcohol drug counselor on stopping illegal drug use Non-ischemic CMP with AICD in situ, Ef 20-25% - cont home meds - Cardiology evaluated and signed off H/O mechanical MV replacement - INR goal 2.5 - 3.5 - bridge with lovenox, resumed coumadin - monitor INR daily Subtherapeutic INR - likely from noncompliance, counseling done - resumed anticoagulation Hypokalemia, will replace - bmp am Anemia, suspect chronic disease - check cbc am HTN, stable now HLP, cont statin DVT Px on lovenox/coumadin Urine Drug Screen +cocaine and marijuana - counseling done Elevated LFT, likely from chronic hepatic congestion from CHF as diagnosed during prior admission. Cont to monitor. NSVT recurrent, d/w Cardiology: AICD will treat and make sure electrolytes, mag and k are normal. bmp, mg level in am INR 2.02 Disposition: continue inpatient care, d/c once INR is therapeutic History Interval history: Patient was seen and examined. Follow-up on current diagnosis of ap/n/v; the vomiting and abd pains resolved, still have nausea. Overnight uneventful. Patient denies any chest pain, shortness breath, or severe headaches. Imaging, nursing note, chart, labs and old chart reviewed. Discussed with patient. Hospitalist Physical - Physical exam Narrative exam: GEN: WDWN, NAD, Awake, Alert, Orientated x 3 HEENT: NCAT, EOMI, PERRL, OP Clear NECK: supple, no adenopathy, no thyromegaly, no JVD CVS/HEART: RRR, normal S1S2, pulses present bilaterally CHEST/LUNGS: CTA B, Symmetrical chest expansion, good air entry bilaterally GI/Abdomen: soft, NTND, good bowel sounds, no guarding or rebound /Bladder: no suprapubic tenderness, no CVA or paraspinal tenderness EXT/Skin: no c/c/e, no obvious rash MSK: FROM x 4 Neuro: CN 2-12 grossly intact, no new focal deficits Psych: calm - Constitutional Vitals: Temp Pulse Resp BP Pulse Ox 97.9 F 72 20 98/50 95 03/25/18 05:13 03/25/18 08:00 03/25/18 05:13 03/25/18 11:19 03/25/18 05:13 General appearance: Present: no acute distress Results - Labs CBC & Chem 7: 03/24/18 04:52 03/24/18 04:52 Labs: Laboratory Last Values WBC 6.5 K/mm3 (4.5-11.0) 03/24/18 04:52 RBC 4.50 M/mm3 (3.65-5.03) 03/24/18 04:52 Hgb 11.5 gm/dl (10.1-14.3) 03/24/18 04:52 Hct 36.4 % (30.3-42.9) 03/24/18 04:52 MCV 81 fl (79-97) 03/24/18 04:52 MCH 26 pg (28-32) L 03/24/18 04:52 MCHC 32 % (30-34) 03/24/18 04:52 RDW 18.9 % (13.2-15.2) H 03/24/18 04:52 Plt Count 427 K/mm3 (140-440) 03/24/18 04:52 Lymph % (Auto) 25.3 % (13.4-35.0) 03/21/18 05:05 [place] % (Auto) 5.1 % (0.0-7.3) 03/21/18 05:05 Eos % (Auto) 1.8 % (0.0-4.3) 03/21/18 05:05 Baso % (Auto) 0.4 % (0.0-1.8) 03/21/18 05:05 Lymph # 2.1 K/mm3 (1.2-5.4) 03/21/18 05:05 [place] # 0.4 K/mm3 (0.0-0.8) 03/21/18 05:05 Eos # 0.2 K/mm3 (0.0-0.4) 03/21/18 05:05 Baso # 0.0 K/mm3 (0.0-0.1) 03/21/18 05:05 Seg Neutrophils % 67.4 % (40.0-70.0) 03/21/18 05:05 Seg Neutrophils # 5.5 K/mm3 (1.8-7.7) 03/21/18 05:05 PT 24.2 Sec. (12.2-14.9) H 03/25/18 05:36 INR 2.02 (0.87-1.13) H 03/25/18 05:36 APTT 27.5 Sec. (24.2-36.6) 03/21/18 05:05 Sodium 137 mmol/L (137-145) 03/24/18 04:52 Potassium 4.3 mmol/L (3.6-5.0) 03/24/18 04:52 Chloride 94.4 mmol/L (98-107) L 03/24/18 04:52 Carbon Dioxide 26 mmol/L (22-30) 03/24/18 04:52 Anion Gap 21 mmol/L 03/24/18 04:52 BUN 17 mg/dL (7-17) 03/24/18 04:52 Creatinine 1.2 mg/dL (0.7-1.2) 03/24/18 04:52 Estimated GFR 58 ml/min 03/24/18 04:52 BUN/Creatinine Ratio 14 % 03/24/18 04:52 Glucose 87 mg/dL (65-100) 03/24/18 04:52 Calcium 9.0 mg/dL (8.4-10.2) 03/24/18 04:52 Magnesium 2.00 mg/dL (1.7-2.3) 03/23/18 06:09 Total Bilirubin 1.10 mg/dL (0.1-1.2) 03/23/18 05:28 Direct Bilirubin < 0.2 mg/dL (0-0.2) 03/23/18 05:28 Indirect Bilirubin 0.9 mg/dL 03/23/18 05:28 AST 33 units/L (5-40) 03/23/18 05:28 ALT 20 units/L (7-56) 03/23/18 05:28 Alkaline Phosphatase 63 units/L (35-129) 03/23/18 05:28 Total Creatine Kinase 226 units/L (30-135) H 03/21/18 07:59 CK-MB (CK-2) 3.4 ng/mL (0.0-4.0) 03/21/18 07:59 CK-MB (CK-2) Rel Index 1.5 (0-4) 03/21/18 07:59 NT-Pro-B Natriuret Pep 43615 pg/mL (0-450) H 03/21/18 05:05 Total Protein 6.3 g/dL (6.3-8.2) 03/23/18 05:28 Albumin 3.5 g/dL (3.9-5) L 03/23/18 05:28 Albumin/Globulin Ratio 1.3 % 03/23/18 05:28 Lipase 19 units/L (13-60) 03/21/18 05:05 HCG, Qual Negative (Negative) 03/21/18 05:05 Urine Color Yellow (Yellow) 03/22/18 16:40 Urine Turbidity Clear (Clear) 03/22/18 16:40 Urine pH 6.0 (5.0-7.0) 03/22/18 16:40 Ur Specific [place] 1.010 (1.003-1.030) 03/22/18 16:40 Urine Protein <15 mg/dl mg/dL (Negative) 03/22/18 16:40 Urine Glucose (UA) Neg mg/dL (Negative) 03/22/18 16:40 Urine Ketones Neg mg/dL (Negative) 03/22/18 16:40 Urine Blood Neg (Negative) 03/22/18 16:40 Urine Nitrite Pos (Negative) 03/22/18 16:40 Urine Bilirubin Neg (Negative) 03/22/18 16:40 Urine Urobilinogen 4.0 mg/dL (<2.0) 03/22/18 16:40 Ur Leukocyte Esterase Neg (Negative) 03/22/18 16:40 Urine WBC (Auto) 1.0 /HPF (0.0-6.0) 03/22/18 16:40 Urine RBC (Auto) 4.0 /HPF (0.0-6.0) 03/22/18 16:40 U Epithel Cells (Auto) 5.0 /HPF (0-13.0) 03/22/18 16:40 Urine Bacteria (Auto) 2+ /HPF (Negative) 03/22/18 16:40 Hyaline Casts 3 /LPF 03/22/18 16:40 Granular Casts 1 /LPF 03/22/18 16:40 Urine Mucus Few /HPF 03/22/18 16:40 Urine Opiates Screen Presumptive negative 03/22/18 16:40 Urine Methadone Screen Presumptive negative 03/22/18 16:40 Ur Barbiturates Screen Presumptive negative 03/22/18 16:40 Ur Phencyclidine Scrn Presumptive negative 03/22/18 16:40 Ur Amphetamines Screen Presumptive negative 03/22/18 16:40 U Benzodiazepines Scrn Presumptive negative 03/22/18 16:40 Urine Cocaine Screen Presumptive positive 03/22/18 16:40 U Marijuana (THC) Screen Presumptive positive 03/22/18 16:40 Drugs of Abuse Note Disclamer 03/22/18 16:40
[2018-03-25] MEDS: COUMADIN PO SCH (18:53)
[2018-03-26 08:43] LABS: INR 2.45 (0.87-1.13)
[2018-03-26 10:23] LABS: BUN/Creatinine Ratio 16; Blood Urea Nitrogen 18 mg/dL (7-17); Calcium 8.7 mg/dL (8.4-10.2); Hemolysis Index 8
[2018-03-26] MEDS: NORCO 5/325 PO PRN (11:16)
[2018-03-26] MEDS: ALDACTONE PO SCH (11:17)
[2018-03-26] MEDS: LASIX PO SCH (11:17)
[2018-03-26] MEDS: PROTONIX PO SCH (11:17)
[2018-03-26] MEDS: LOVENOX SUB-Q SCH (11:18)
[2018-03-26] MEDS: COREG PO SCH (11:18)
[2018-03-26] MEDS: COZAAR PO SCH (11:19)
--- NOTE | 2018-03-26 13:21 | Discharge Summary ---
Providers - Providers Date of Admission: 03/21/18 09:48 Date of discharge: 03/26/18 Attending physician: SHAZIA RUGGIERO 03/21/18 15:43 Consult to Wound/ET Nurse [CONS] Routine Reason For Exam: wound eval Primary care physician: [employer] Hospitalization Condition: Stable Hospital course: Patient is a 47-year-old who with a histoy of systolic HF, mechanical mitral valve on coumadin, NSVT with AICD in place, HTN, HLD presented with abdominal pain, N/V and unable to tolerate po meds for last 3-4 days. Patient had an extensive workup last month for similar symptoms. She had a HIDA scan, ultrasound of the gallbladder and a CT abdomen which were essentially nondiagnostic. In the ER her INR noted subtherapeutic, she was getting admitted for further evaluation and management. Abdominal pain / nausea and vomiting with GERD/gastritis possibly from chronic marijuana use - had extensive work up during prior admission with GI consult - will provide supportive care, PPI - diet counselor on stopping illegal drug use Non-ischemic CMP with AICD in situ, Ef 20-25% - cont home meds - Cardiology evaluated and signed off H/O mechanical MV replacement - INR goal 2.5 - 3.5 - bridge with lovenox, resumed coumadin - monitor INR daily Subtherapeutic INR - likely from noncompliance, counseling done - resumed anticoagulation Hypokalemia, will replace - bmp am Anemia, suspect chronic disease - check cbc am HTN, stable now HLP, cont statin DVT Px on lovenox/coumadin Urine Drug Screen +cocaine and marijuana - counseling done Elevated LFT, likely from chronic hepatic congestion from CHF as diagnosed during prior admission. Cont to monitor. NSVT recurrent, d/w Cardiology: AICD will treat and make sure electrolytes, mag and k are normal. bmp, mg level in am INR 2.45 Disposition: home Disposition: DC-01 TO HOME OR SELFCARE Time spent for discharge: 35 min Core Measure Documentation - Palliative Care Palliative Care/ Comfort Measures: Not Applicable - Core Measures Any of the following diagnoses?: none - VTE Discharge Requirements Deep Vein Thrombosis/Pulmonary Embolism Present on Admission: No Has pt received <5 days of overlap therapy or INR<2.0: No Anticoagulant overlap therapy prescribed at discharge: No Contraindication No Overlap Therapy order at DC: Not Indicated Exam - Physical Exam Narrative exam: GEN: WDWN, NAD, Awake, Alert, Orientated x 3 HEENT: NCAT, EOMI, PERRL, OP Clear NECK: supple, no adenopathy, no thyromegaly, no JVD CVS/HEART: RRR, normal S1S2, pulses present bilaterally CHEST/LUNGS: CTA B, Symmetrical chest expansion, good air entry bilaterally GI/Abdomen: soft, NTND, good bowel sounds, no guarding or rebound /Bladder: no suprapubic tenderness, no CVA or paraspinal tenderness EXT/Skin: no c/c/e, no obvious rash MSK: FROM x 4 Neuro: CN 2-12 grossly intact, no new focal deficits Psych: calm - Constitutional Vitals: Temp Pulse Resp BP Pulse Ox 98.6 F 76 18 101/57 94 03/26/18 06:22 03/26/18 11:18 03/26/18 06:22 03/26/18 11:18 03/26/18 06:22 Plan Activity: other (no strenous activities until cleared by pcp) Diet: low salt Special Instructions: smoking cessation Follow up with: PRIMARY CARE, [Primary Care Provider] - 3-5 Days FIFI CHAMBERS MD [Staff Physician] - 7 Days Forms: Warfarin Discharge Instruction Prescriptions: Carvedilol [Coreg] 12.5 mg PO BID #60 tablet Furosemide [Lasix TAB] 40 mg PO BID #60 tablet HYDROcodone/APAP 5-325 [[place] 5-325 mg TAB] 1 each PO Q6H PRN #10 tablet PRN Reason: Pain , Severe (7-10) Spironolactone [Aldactone] 25 mg PO DAILY #30 tablet Warfarin [Coumadin] 7.5 mg PO DAILY #30 tablet
[2018-03-26 13:45] VITALS: BP 109/84
[2018-03-26] MEDS: COUMADIN PO SCH (15:58)
[2018-03-27] MEDS ORDERED: COUMADIN PO SCH (17:00)
== END 2018-03-26 16:45 | disposition home or self-care (01) | DRG 391 ==
LOC: ED 23:17 → 3A 03-21 09:48
PROVIDERS: ADMIT Internal Medicine; ATTEND Internal Medicine
PROC: 3E0234Z Introduction of Serum, Toxoid and Vaccine into Muscle, Percutaneous Approach (ICD-10-PCS; principal; 2018-03-22)
DX: K29.70 Gastritis, unspecified, without bleeding (principal); I50.23 Acute on chronic systolic (congestive) heart failure; I42.8 Other cardiomyopathies; I47.1 Supraventricular tachycardia; I11.0 Hypertensive heart disease with heart failure; K21.9 Gastro-esophageal reflux disease without esophagitis; T40.7X5A Adverse effect of cannabis (derivatives), initial encounter; E87.6 Hypokalemia; D63.8 Anemia in other chronic diseases classified elsewhere; E78.5 Hyperlipidemia, unspecified; Z95.810 Presence of automatic (implantable) cardiac defibrillator; Z51.81 Encounter for therapeutic drug level monitoring; Y92.89 Other specified places as the place of occurrence of the external cause; Z91.14 Patient's other noncompliance with medication regimen; Z82.49 Family history of ischemic heart disease and other diseases of the circulatory system; Z95.2 Presence of prosthetic heart valve; Z23 Encounter for immunization
CPT/HCPCS: 36415; 71045; 80048; 80053; 80074; 80307; 81001; 82550; 82553; 83690; 83735; 83880; 84703; 85025; 85027; 85610; 85730; 90732; 93005; 93010; 96374; 96375; J1650; J1940; J2405